=== PATIENT | male | born 1985 | race Caucasian/White ===

== ENCOUNTER 2019-10-15 13:25 | Emergency (ER) | payer MEDICAID, OTHER ==
[~2019-10-15] VITALS: Ht 188 cm; Wt 80.0 kg
[~2019-10-15 13:25] MED LIST: OLAN10TA3 PO
--- NOTE | 2019-10-15 13:39 | NUR ---
pt jason, report taken from ems. pt c/o headache above right eye onset at 0900 while vomiting at [facility]. 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 pt states he has been sober x 1 week, and was dc'd from [facility] this am. all monitors placed, ekg taken on arrival by edt. pt is neurologically intact. pt a&ox4, resps even and unlabored. call light in reach. pt awaiting provider and orders at this time.
--- NOTE | 2019-10-15 13:50 | NUR ---
While performing clinical screen, patient reports intermittent SI, which is chronic. pt notes he has felt suicidal today but has no plan. MD Gleason notified. awaiting orders at this time.
[2019-10-15] MEDS ORDERED: ONDANSETRON 2MG/ML, 2ML IVPush ONE (14:00)
[2019-10-15] MEDS ORDERED: LORazepam 2 MG/ML, 1ML IVPush ONE (14:00)
[2019-10-15] MEDS ORDERED: SODIUM CHLORIDE 0.9% 1,000ML IVBOLUS ONE (14:00)
[2019-10-15] MEDS ORDERED: LORazepam 2 MG/ML, 1ML ONE (14:34)
[2019-10-15] MEDS ORDERED: ONDANSETRON 2MG/ML, 2ML ONE (14:34)
[2019-10-15 14:39] LABS: BASOPHILS # (AUTO) 0.04 x10^3/uL (0-0.1); BASOPHILS % (AUTO) 0 % (0-1); EOSINOPHILS # (AUTO) 0.09 x10^3/uL (0-0.4); EOSINOPHILS % (AUTO) 1 % (1-7); LYMPHOCYTES # (AUTO) 2.23 x10^3/uL (1-3.4); LYMPHOCYTES % (AUTO) 22 % (22-44); MD NO; MEAN CORPUSCULAR HEMOGLOBIN 30.4 pg (27.5-34.5); MEAN CORPUSCULAR HGB CONC 33.2 g/dL (33.2-36.2); MEAN CORPUSCULAR VOLUME 91.5 fL (81-97); MEAN PLATELET VOLUME 9.2 fL (7.4-10.4); MONOCYTES # (AUTO) 0.35 x10^3/uL (0.2-0.8); MONOCYTES % (AUTO) 4 % (2-9); NEUTROPHILS # (AUTO) 7.28 x10^3/uL (1.8-6.8); NEUTROPHILS % (AUTO) 73 % (42-75); PLATELET COUNT 255 x10^3/uL (130-400); RED BLOOD COUNT 4.25 x10^6/uL (4.38-5.82); RED CELL DISTRIBUTION WIDTH 13.8 % (9.4-14.8)
[2019-10-15 14:43] LABS: ALBUMIN 3.8 g/dL (3.4-5.0); ANION GAP 5 mmol/L (5-15); CALCIUM 8.5 mg/dL (8.5-10.1); CHLORIDE 107 mmol/L (98-107)
[2019-10-15 14:47] LABS: ALANINE AMINOTRANSFERASE 113 U/L (12-78); ALKALINE PHOSPHATASE 82 U/L (45-117); BILIRUBIN,TOTAL 0.4 mg/dL (0.2-1.0); CREATININE 0.97 mg/dL (0.7-1.3); TOTAL PROTEIN 6.9 g/dL (6.4-8.2)
[2019-10-15 14:48] LABS: SALICYLATE LEVEL < 1.7 mg/dL (2.8-20.0)
--- NOTE | 2019-10-15 14:52 | NUR ---
REPORT FROM [facility]
--- NOTE | 2019-10-15 14:56 | NUR ---
MD ELLIOTT NOTIFIED PT HAS ALREADY RECEIVED 4 MG ZOFRAN HURRICANE TRACKER, MD SHEIKH'D RN TO ADMIN ADDITIONAL 4 MG ORDERED PER EMAR. PT A&O, RSPS EVEN AND UNLABORED, ST RATE 110'S ON ELECTRIC ORGAN INSPECTOR AND REPAIRER WITH NO ECTOPY. PT MEDICATED PER EMAR, TOLERATED WELL. PER MD ELLIOTT, PT IS LOW RISK SI, PER PT IS TO HAVE LOW RISK SI INTERVENTIONS AT THIS TIME.
--- NOTE | 2019-10-15 14:57 | NUR ---
report given to MIRACLE Hendricks, pt to CT at this time.
[2019-10-15 15:12] LABS: AMPHETAMINE SCREEN, URINE Negative (Negative); BARBITURATE SCREEN, URINE Negative (Negative); BENZODIAZEPINE SCREEN, URINE Negative (Negative); CANNABINOID SCREEN, URINE Positive (Negative); COCAINE SCREEN, URINE Negative (Negative); METHADONE SCREEN, URINE Negative (Negative); OPIATE SCREEN, URINE Negative (Negative)
[2019-10-15] MEDS ORDERED: KETOROLAC 30 MG/1 ML ONE ×2 (16:29→19:39)
[2019-10-15] MEDS ORDERED: ACETAMINOPHEN 500 MG TABLET ONE (16:29)
[2019-10-15] MEDS ORDERED: KETOROLAC 30 MG/1 ML IVPush ONE (16:30)
[2019-10-15] MEDS ORDERED: ACETAMINOPHEN 500 MG TABLET PO ONE (16:30)
--- NOTE | 2019-10-15 16:34 | NUR ---
MEDICATED FOR SANDOVAL PER ORDERS. USER EXPERIENCE DESIGNER AT BEDSIDE DISCUSSING POC
--- NOTE | 2019-10-15 17:25 | NUR ---
PT GIVEN MEAL TRAY. PT IS PLACED ON LEGAL HOLD BY JONG JOHN. ALL BELONGINGS IN SECURITY LOCKER
--- NOTE | 2019-10-15 18:55 | NUR ---
REPORT RECEIVED FROM MIRACLE CASTRO
--- NOTE | 2019-10-15 18:58 | NUR ---
report to cecilia osullivan
--- NOTE | 2019-10-15 19:26 | NUR ---
pt resting on [facility], room secured, stated " i still have suicidal thought and plan is to do too much drugs", sitter at doorway for continous monitoring
[2019-10-15] MEDS ORDERED: QUETIAPINE 100MG TABLET ONE (19:39)
--- NOTE | 2019-10-15 19:49 | NUR ---
pt medicated per mar
--- NOTE | 2019-10-15 19:57 | NUR ---
provided pt with sandwich, chips and drink, si precautions maintained Addendum: 10/15/19 at 2006 by KAMILA sitter at doorway for continous monitoring
[2019-10-15] MEDS: QUETIAPINE 100MG TABLET PO SCH (20:04)
--- NOTE | 2019-10-15 21:18 | NUR ---
pt resting calmly, denies needs at this time, sitter at doorway for continous monitoring
--- NOTE | 2019-10-15 22:10 | NUR ---
pt resting calmly with eyes closed, nad, respirations even and unlabored, sitter at doorway for continous monitoring
--- NOTE | 2019-10-15 23:08 | NUR ---
REFERRAL WAS FAXED TO [facility], [facility], [facility], AND [facility] [[email or web address]]
--- NOTE | 2019-10-15 23:16 | NUR ---
provided pt with hospital bed, pt resting calmly, denies further needs at this time, si safety precautions maintained, sitter at doorway for continous monitoring
--- NOTE | 2019-10-16 00:02 | NUR ---
PT RESTING CALMLY IN BED, NAD, EQUAL CHEST RISE/FALL OBSERVED, SITTER AT DOORWAY FOR CONTINOUS MONITORING
--- NOTE | 2019-10-16 01:02 | NUR ---
PT RESTING CALMLY WITH EYES CLOSED, REPOSITIONED SELF IN BED, EQUAL CHEST RISE/FALL OBSERVED, SITTER AT DOORWAY FOR CONTINOUS MONITORING
--- NOTE | 2019-10-16 02:01 | NUR ---
Yulisa quarles in [facility] - 10/16/19 at 0202 by TEVIN report given to abran burris
--- NOTE | 2019-10-16 02:02 | NUR ---
report given to abran burris
--- NOTE | 2019-10-16 02:05 | NUR ---
PATIENT RESTING IN BED, EVEN UNLABORED RESPIRATIONS, NO NOTED NEEDS AT THIS TIME. SITTER AT BEDSIDE. WILL CONTINUE TO MONITOR.
--- NOTE | 2019-10-16 04:00 | NUR ---
PATIENT ASLEEP IN BED, TOLERATING INTERVENTIONS WELL. NO NOTED ACUTE DISTRESS. PATIENT SITTER AT BEDSIDE. WHEN PATIENT AWAKENS VITAL SIGNS WILL BE TAKEN
--- NOTE | 2019-10-16 05:23 | NUR ---
PATIENT RESTING IN BED, NO NOTED ACUTE DISTRESS. SITTER AT BEDSIDE WITH PATIENT FOR ONE-ON-ONE OBSERVATION. NO NOTED NEEDS AT THIS TIME, WILL CONTINUE TO MONITOR.
--- NOTE | 2019-10-16 07:00 | NUR ---
I AM ASSUMING CARE OF THIS PT FROM BRIA (MIRACLE) AT THIS TIME. SBAR REPORT WAS EXCHANGED AT THE BEDSIDE.
--- NOTE | 2019-10-16 09:56 | NUR ---
PT RESTING COMFORTABLY ON A HOSPITAL BED. NO ACUTE DISTRESS NOTED SINCE MY ARRIVAL ON SHIFT TODAY. MEAL TRAYS ARE PROVIDED AND APPRECIATED. ADLS COMPLETED W SITTER. I WILL CONTINUE TO MONITOR AND TREAT ORDERED, WELL PRN WHILE AWAITING A ROOM ASSIGNMENT FOR FURTHER TX.
[2019-10-16] MEDS ORDERED: QUETIAPINE 100MG TABLET ONE ×2 (10:02→19:21)
[2019-10-16] MEDS: QUETIAPINE 100MG TABLET PO SCH ×2 (10:03→19:26)
--- NOTE | 2019-10-16 12:16 | NUR ---
meal tray provided. pt is sleeping sonorously on a hospital bed at this time. no acute changes in condition noted at this time. i will continue to monitor and treat as ordered, as well as prn while awaiting a room assignment for admission.
--- NOTE | 2019-10-16 12:57 | NUR ---
denise (abran) is assuming care of this pt at this time. sbar report was exchanged at the bedside.
[2019-10-16] MEDS ORDERED: IBUPROFEN 800 MG TABLET ONE (19:23)
[2019-10-16] MEDS ORDERED: IBUPROFEN 600 MG TABLET PO ONE (19:30)
[2019-10-16] MEDS ORDERED: IBUPROFEN 200 MG TABLET PO ONE (19:30)
--- NOTE | 2019-10-16 20:30 | NUR ---
PT REQUESTED WATER. PT DRANK 2 LARGE GLASSES OF WATER
--- NOTE | 2019-10-16 21:50 | NUR ---
PT AMBULATED WITH SITTER TO BATHROOM.
--- NOTE | 2019-10-17 00:31 | NUR ---
BREAK RN: PT RESITNG CALMLY IN BED WITH EYES CLOSED. SITTER AT DOOR.
--- NOTE | 2019-10-17 02:50 | NUR ---
PT SLEEPING IN BED FOR THE LAST 4 HRS, PT HAS SI PRECAUTIONS IN PLACE WITH A SITTER AT PT BED SIDE.
--- NOTE | 2019-10-17 03:50 | NUR ---
PT SLEEPING IN BED WITH 2 SITTERS AT PT SIDE,SI PRECAUTIONS ARE IN PLACE.
--- NOTE | 2019-10-17 06:06 | NUR ---
PT SLEEPING WITH SITTER AT PT SIDE, PT ROOM IS SI SECURED.
--- NOTE | 2019-10-17 06:55 | NUR ---
REPORT GIVEN TO MIRACLE CESAR.
--- NOTE | 2019-10-17 07:15 | NUR ---
REC BS REPORT PT RESTING SITTER IN THE [place] EYES ON THE PT PT CO BLEEDING POST R EAR FROM HIM SCRATCHING IT NO BLEEDING NOTED AT THIS TIME PT ADVISED TO STOP SCRATCHING THE EAR
--- NOTE | 2019-10-17 08:55 | NUR ---
COFFEE NAD CRACKERS PROVIDED
[2019-10-17] MEDS ORDERED: QUETIAPINE 100MG TABLET ONE ×2 (09:03→18:58)
[2019-10-17] MEDS: QUETIAPINE 100MG TABLET PO SCH ×2 (09:06→19:04)
--- NOTE | 2019-10-17 12:53 | NUR ---
PT REQUESTED TO SPEAK WITH SUPV RE NOT BEING PROVIDED WITH ENOUGH FOOD AND SNACKS HOUSE SUP MET WITH PT REVIEWED AND CONFIRMED WITH PT THAT HE WILL REC THREE MEALS AND A SMALL SNACK BETWEEN MEALS PT WILL NOT REC MULTI TRAYS FOR EACH MEAL
--- NOTE | 2019-10-17 13:58 | NUR ---
TP RN: Per Elvi at [facility], their facility is full & wont have any open beds until at least Saturday and this pt is "very far down the list"
[2019-10-17] MEDS ORDERED: HYDROXYZINE PAMOATE 50MG CAP PO ONE (14:00)
[2019-10-17] MEDS ORDERED: hydrOXyzine 50MG TABLET ONE (14:32)
--- NOTE | 2019-10-17 16:10 | NUR ---
ASSUMED CARE OF PT, PT RESTING ON HOSPITAL BED WATCHING TELEVISION. PT WITH SI PRECAUTIONS IN PLACE, SITTER IN VIEW. NAD NOTED
--- NOTE | 2019-10-17 18:00 | NUR ---
ASSUMED PT CARE AT THIS TIME. PT RESTING ON HOSP BED. ALL SAFETY MEASURES IN PLACE. SITTER AT DOORWAY, PT WITHIN FULL VIEW.
[2019-10-17] MEDS ORDERED: IBUPROFEN 200 MG TABLET ONE (18:27)
[2019-10-17] MEDS ORDERED: IBUPROFEN 800 MG TABLET ONE (18:29)
[2019-10-17] MEDS ORDERED: IBUPROFEN 800 MG TABLET PO ONE (18:30)
--- NOTE | 2019-10-17 18:56 | NUR ---
LATE ENTRY FOR 1830: PT MEDICATED PER ORDER. PT GIVEN LYNETTE CRACKERS AND PEANUT BUTTER, ALSO GIVEN WATER. ALL SAFETY MEASURES OBTAINED.
--- NOTE | 2019-10-17 18:57 | NUR ---
BEDSIDE REPORT TO MIRACLE ZARAGOZA.
--- NOTE | 2019-10-17 19:04 | NUR ---
ROUNDS COMPLETED. VS TAKEN. PM MEDS GIVEN. REQUESTING A SNACK. PER RN TO RN REPORT THE PT WAS GIVEN A SNACK OF CRACKERS AND PEANUT BUTTER AT 1800.
--- NOTE | 2019-10-17 19:07 | NUR ---
CONT CURRENT TREATMENT. " I FEEL LIKE THE SEROQUEL IS REALLY HELPING ".
--- NOTE | 2019-10-17 19:08 | NUR ---
SITTER DIRECTLY AT THE DOOR.
--- NOTE | 2019-10-17 20:28 | NUR ---
RESTING QUIETLY. NO DISTRESS. NO C/O AT THIS TIME. NO NONVERBAL S/S OF PAIN OR DISCOMFORT. THE SITTER IS DIRECTLY AT THE DOOR.
--- NOTE | 2019-10-17 21:51 | NUR ---
SITTER DIRECTLY AT THE DOOR. THE PT RESPIRATIONS ARE EVEN AND NONLABORED W/O DISTRESS.
--- NOTE | 2019-10-18 00:03 | NUR ---
SITTER DIRECTLY AT THE DOOR. THE PT RESPIRATIONS ARE EVEN AND NONLABORED W/O DISTRESS.
--- NOTE | 2019-10-18 01:57 | NUR ---
SITTER DIRECTLY AT THE DOOR. THE PT RESPIRATIONS ARE EVEN AND NONLABORED W/O DISTRESS.
--- NOTE | 2019-10-18 05:13 | NUR ---
THE PT IS RESTING. RESPIRATIONS ARE EVEN AND NONLABORED. NO DISTRESS. NO NONVERBAL S/S OF PAIN OR DISCOMFORT. THE SITTER IS DIRECTLY AT THE DOOR. THE PT BREAKFAST TRAY HAS BEEN ORDERED.
--- NOTE | 2019-10-18 07:28 | NUR ---
PT PROVIDED WITH COFFEE PER REQUEST, DENIES FURTHER NEEDS AT THIS TIME. NO ACUTE S/S OF DISTRESS. SITTER MONITORING FROM [facility] SAFETY
[2019-10-18] MEDS ORDERED: QUETIAPINE 100MG TABLET ONE ×2 (08:12→20:33)
[2019-10-18] MEDS: QUETIAPINE 100MG TABLET PO SCH ×2 (08:15→20:37)
--- NOTE | 2019-10-18 08:20 | NUR ---
pt provided with coffe per request
--- NOTE | 2019-10-18 09:07 | NUR ---
Report received from MIRACLE Braden. Care assumed. Patient is resting in bed with sitter in the doorway, room is safe and secure, no requests from patient at this time. Patient resting in hospital bed watching television, does not appear to be in acute distress.
--- NOTE | 2019-10-18 10:00 | NUR ---
Patient requests food, patient given between meal snack including milk and cereal, peanut butter and duncan crackers and applesauce.
--- NOTE | 2019-10-18 10:42 | NUR ---
Patient requested medication for anxiety, medicated as ordered and documented 5 rights observed.
--- NOTE | 2019-10-18 10:43 | NUR ---
Lunch tray ordered.
--- NOTE | 2019-10-18 11:52 | NUR ---
Provider at bedside speaking with patient.
--- NOTE | 2019-10-18 12:12 | NUR ---
Lunch provided, patient pleasant and cooperative, reports improvement in anxiety.
[2019-10-18] MEDS ORDERED: SERTRALINE 50MG TABLET ONE (12:15)
[2019-10-18] MEDS: SERTRALINE 50MG TABLET PO SCH (12:17)
--- NOTE | 2019-10-18 14:59 | NUR ---
Patient given afternoon snack as requested. Sitter remains in full view of patient.
--- NOTE | 2019-10-18 17:39 | NUR ---
Dinner tray provided.
--- NOTE | 2019-10-18 19:04 | NUR ---
Bedside report to MIRACLE Curran
--- NOTE | 2019-10-18 19:42 | NUR ---
PT RESTING WATHING TV, MEDICATED PER ANXIETY PER HIS REQUEST, ROOM SECURED, SITTER AT DOORWAY FOR CONTINOUS MONITORING
--- NOTE | 2019-10-18 20:35 | NUR ---
PROVIDED PT WITH SANDWICH, CHIP AND DRINK, SI PRECAUTIONS MAINTAINED.
--- NOTE | 2019-10-18 20:38 | NUR ---
pt medicated per jan, sitter at doorway for continous monitoring
--- NOTE | 2019-10-18 21:23 | NUR ---
PT RESTING IN BED WATCHING TV, DENIES NEEDS AT THIS TIME, ROOM REMAINS SECURED, SITTER AT DOORWAY FOR CONTINOUS MONITORING
--- NOTE | 2019-10-18 23:07 | NUR ---
late entry 2215-PT RESTING IN BED WATCHING TV, DENIES NEEDS AT THIS TIME, SITTER AT DOORWAY FOR CONTINOUS MONITORING
--- NOTE | 2019-10-18 23:07 | NUR ---
PT RESTING IN BED, DENIES NEEDS, SITTER AT DOORWAY FOR CONTINOUS MONITORING
--- NOTE | 2019-10-19 00:05 | NUR ---
PT RESTING WITH EYES CLOSED, EQUAL CHEST RISE/FALL OBSERVED, SITTER AT DOORWAY FOR CONTINOUS MONITORING
--- NOTE | 2019-10-19 02:56 | NUR ---
PT RESTING IN BED WATCHING TV, PT HAS SITTER AT PT DOOR, SI SECURE ROOM AND SI PRECAUTIONS ARE IN PLACE. PT DENIED ANY NEEDS AT THIS TIME.
--- NOTE | 2019-10-19 03:57 | NUR ---
PT SLEEPING, PT HAS SITTER AT PT DOOR, SI SECURE ROOM AND SI PRECAUTIONS ARE IN PLACE. PT DENIED ANY NEEDS AT THIS TIME.
--- NOTE | 2019-10-19 06:02 | NUR ---
PT SLEEPING, PT HAS SITTER AT PT DOOR, SI SECURE ROOM AND SI PRECAUTIONS ARE IN PLACE. PT DENIED ANY NEEDS AT THIS TIME.
--- NOTE | 2019-10-19 06:03 | NUR ---
PT SLEEPING, PT HAS SITTER AT PT DOOR, SI SECURE ROOM AND SI PRECAUTIONS ARE IN PLACE. PT DENIED ANY NEEDS AT THIS TIME.
--- NOTE | 2019-10-19 07:00 | NUR ---
REPORT RECEIVED FROM REBECA RAUSCH.
--- NOTE | 2019-10-19 07:01 | NUR ---
MEAL TRAY ORDERED AT THIS TIME.
--- NOTE | 2019-10-19 07:50 | NUR ---
MEAL TRAY AND HOT COFFEE PROVIDED AT THIS TIME.
[2019-10-19] MEDS ORDERED: QUETIAPINE 100MG TABLET ONE ×2 (08:31→20:45)
[2019-10-19] MEDS ORDERED: SERTRALINE 50MG TABLET ONE (08:31)
[2019-10-19] MEDS: SERTRALINE 50MG TABLET PO SCH (08:33)
[2019-10-19] MEDS: QUETIAPINE 100MG TABLET PO SCH ×2 (08:33→20:50)
--- NOTE | 2019-10-19 08:35 | NUR ---
PT MEDICATED PER EMAR. PT TOLERATED WELL.
--- NOTE | 2019-10-19 09:31 | NUR ---
CUP OF COFFEE AND SNACKS PROVIDED AT THIS TIME.
--- NOTE | 2019-10-19 10:28 | NUR ---
PT WATCHING TV IN BED. PT'S AOX4. RESPS EVEN AND UNLABORED. ROOM REMAINS SECURE. SITTER MONITORING FROM [facility] FOR SAFETY.
--- NOTE | 2019-10-19 11:15 | NUR ---
MEAL TRAY ORDERED AT THIS TIME.
--- NOTE | 2019-10-19 11:52 | NUR ---
LUNCH TRAY PROVIDED AT THIS TIME.
--- NOTE | 2019-10-19 12:58 | NUR ---
PT WATCHING TV. RESPS EVEN AND UNLABORED. ROOM REMAINS SECURE. SITTER MONITORING FROM [facility]ALLWAY FOR SAFETY.
--- NOTE | 2019-10-19 14:14 | NUR ---
PT WATCHING TV. RESPS EVEN AND UNLABORED. ROOM REMAINS SECURE. SITTER MONITORING FROM [facility]ALLWAY FOR SAFETY.
--- NOTE | 2019-10-19 14:33 | NUR ---
A CUP OF COFFEE AND SNACKS PROVIDED AT THIS TIME.
--- NOTE | 2019-10-19 16:02 | NUR ---
PT AMB TO BR WITH STEADY GAIT.
--- NOTE | 2019-10-19 16:38 | NUR ---
PT C/O ANXIETY AT THIS TIME. PT MEDICATED PER EMAR FOR ANXIETY. PT TOLERATED WELL.
--- NOTE | 2019-10-19 17:18 | NUR ---
MEAL TRAY ORDERED AT THIS TIME.
--- NOTE | 2019-10-19 18:09 | NUR ---
DINNER TRAY PROVIDED AT THIS TIME.
--- NOTE | 2019-10-19 18:49 | NUR ---
REPORT GIVEN TO TWILA RAUSCH.
--- NOTE | 2019-10-19 18:59 | NUR ---
Recevied report from RN. Assumed care of pt. Pt sitting up in bed watching TV, denies any needs at this time. Reviewed POC for NOC, denied questions/concerns.
--- NOTE | 2019-10-19 19:00 | NUR ---
Sitter in view of pt.
--- NOTE | 2019-10-19 20:50 | NUR ---
PT MEDICATED ORDERED. PT IN DIRECT VIEW OF SITTER.
--- NOTE | 2019-10-19 21:22 | NUR ---
PT RESTING QUIETLY AT THIS TIME. PT IN DIRECT VIEW OF SITTER.
--- NOTE | 2019-10-19 22:42 | NUR ---
PT RESTING QUIETLY AT THIS TIME. PT IN DIRECT VIEW OF SITTER.
--- NOTE | 2019-10-19 23:53 | NUR ---
PT RESTING QUIETLY AT THIS TIME. PT IN DIRECT VIEW OF SITTER.
--- NOTE | 2019-10-20 02:51 | NUR ---
0100: PT RESTING QUIETLY AT THIS TIME. SITTER IN DIRECT VIEW OF PT. 0248: PT RESTING QUIETLY AT THIS TIME. SITTER IN DIRECT VIEW OF PT.
--- NOTE | 2019-10-20 04:11 | NUR ---
PT RESTING QUIETLY AT THIS TIME. SITTER IN DIRECT VIEW OF PT.
--- NOTE | 2019-10-20 05:11 | NUR ---
PT RESTING QUIETLY AT THIS TIME. SITTER IN DIRECT VIEW OF PT
--- NOTE | 2019-10-20 06:07 | NUR ---
PT RESTING QUIETLY AT THIS TIME. PT IN DIRECT VIEW OF SITTER.
--- NOTE | 2019-10-20 06:57 | NUR ---
REPORT TO MIRACLE LEPE.
--- NOTE | 2019-10-20 07:04 | NUR ---
REPORT RECEIVED FROM DANIEL RN, PT REESTING ON HOSPITAL BED. AWAKE ALERT AND CALM, REQUESTING COFFEE AT THIS TIME, WILL GIVE TO PT WITH AM MEDS, SITTER IN PLACE, NO OTHER NEEDS AT THIS TIME
[2019-10-20] MEDS ORDERED: QUETIAPINE 100MG TABLET ONE (07:25)
[2019-10-20] MEDS ORDERED: SERTRALINE 50MG TABLET ONE (07:25)
[2019-10-20] MEDS: SERTRALINE 50MG TABLET PO SCH (07:31)
[2019-10-20] MEDS: QUETIAPINE 100MG TABLET PO SCH (07:31)
[2019-10-20 07:37] VITALS: BP 113/70
--- NOTE | 2019-10-20 09:07 | NUR ---
PT MEDICATED PER JAN FOR ANXIETY PER PT REQUEST, ATE ALL OF BREAKFAST TRAY. PT NOW, SI PRECAUTIONS IN PLACE, NAD NOTED
--- NOTE | 2019-10-20 10:26 | NUR ---
PT RESTING ON BED IN SECURE RM. GIVEN COFFEE PER PT REQUEST. NAD NOTED
--- NOTE | 2019-10-20 11:11 | NUR ---
ASHLEY JONG IN TO SPEAK WITH PT. PT TO GO TO COURT TODAY. KELYL DELUCA ORDERED FOR PT. NO OTHER NEEDS AT THIS TIME
--- NOTE | 2019-10-20 12:26 | NUR ---
PTS LEGAL HOLD DISCONTINUED, PT WITH DC ORDERS, PT GIVEN INSTRUCTIONS, UNDERSTANDING STATED. PT GIVEN ALL BELONGINGS FROM LOCKER. CAB VOUCHER PROVIDED. PT ESCORTED TO DC DESK
== END 2019-10-20 12:31 | disposition home or self-care (01) ==
LOC: EDBD 13:25 → ED 17:43
DX: R45.851 Suicidal ideations (principal); R11.2 Nausea with vomiting, unspecified; R51 Headache; R19.7 Diarrhea, unspecified
CPT/HCPCS: 36415; 70450; 71045; 80053; 80307; 85025; 93005; 96374; 96375; 99284; J1885; J2060; J2405; J7030; Q0177

== ENCOUNTER 2019-10-23 16:44 | Emergency (ER) | payer MEDICAID, OTHER ==
[~2019-10-23] VITALS: Ht 188 cm; Wt 83.0 kg
[2019-10-23] MEDS ORDERED: LEVE250T28 PO (17:17)
[2019-10-23] MEDS ORDERED: HALO5TAB5 PO (17:17)
[2019-10-23] MEDS ORDERED: MIRT15TA3 PO (17:17)
--- NOTE | 2019-10-23 17:25 | NUR ---
PT TIP EUCEDA FROM STREET. HOMELESS. STS HE GETS DAILY SEIZURES AND HAS AURA BEFORE SEIZURES. STS TODAY HE HAD A SEIZURE. ALSO STS TODAY HE TOOK HIS HALDOL IN AM AND AFTER HIS SEIZURE HE NOTICED THAT HIS JAW FELT CLENCHED. DENIES HX DYSTONIC REACTIONS. ADMITS TO SMOKING METH 1 HOUR PRIOR TO ARRIVAL. DENIES ETOH/OTHER DRUG USE. TOLD EMS AND THIS RN THAT HE WAS SUICIDAL, STS HIS PLAN IS TO JUMP OFF A BRIDGE. STS ATTEMPTED TO HANG HIMSELF 1 MONTH AGO WHILE IN [place]. FACILITY MANAGER HISTOLOGY AT BEDSIDE TO SIT W/ PT. VSS, SEIZURE PRECAUTIONS IN PLACE, CALL HERNANDEZ IN REACH AWAITING MD PT ASKING FOR FOOD, STS HIS JAW FEELS LESS CLENCHED.
[2019-10-23] MEDS ORDERED: SODIUM CHLORIDE FLUSH 10ML SYR IVF ONE (18:30)
[2019-10-23] MEDS ORDERED: LEVETIRACETAM 1,000 MG in SODIUM CHLORIDE 0.9% 100 ML IV ONE (18:30)
[2019-10-23] MEDS ORDERED: QUETIAPINE 100MG TABLET ONE (18:46)
[2019-10-23 18:50] LABS: BASOPHILS # (AUTO) 0.05 x10^3/uL (0-0.1); BASOPHILS % (AUTO) 1 % (0-1); EOSINOPHILS # (AUTO) 0.05 x10^3/uL (0-0.4); EOSINOPHILS % (AUTO) 0 % (1-7); LYMPHOCYTES # (AUTO) 2.34 x10^3/uL (1-3.4); LYMPHOCYTES % (AUTO) 22 % (22-44); MD NO; MEAN CORPUSCULAR VOLUME 90.8 fL (81-97); MEAN PLATELET VOLUME 9.4 fL (7.4-10.4); MONOCYTES % (AUTO) 7 % (2-9); NEUTROPHILS # (AUTO) 7.44 x10^3/uL (1.8-6.8); NEUTROPHILS % (AUTO) 70 % (42-75); PLATELET COUNT 212 x10^3/uL (130-400); RED BLOOD COUNT 4.73 x10^6/uL (4.38-5.82); RED CELL DISTRIBUTION WIDTH 13.8 % (9.4-14.8)
--- NOTE | 2019-10-23 18:51 | NUR ---
URINE SENT. PT GIVEN FOOD. EKG COMPLETE. BELONGINGS IN BAGS. SITTER AT BEDSIDE. Addendum: 10/23/19 at 1856 by ASAAMANDA URINE SENT. PT GIVEN FOOD. EKG COMPLETE. BELONGINGS IN BAGS. PLACED IN LOCKED LOCKER. SITTER AT BEDSIDE.
[2019-10-23 18:59] LABS: ALBUMIN 3.9 g/dL (3.4-5.0); ANION GAP 7 mmol/L (5-15); CALCIUM 9.2 mg/dL (8.5-10.1); CHLORIDE 105 mmol/L (98-107)
[2019-10-23 18:59] LABS: MICROSCOPIC NOT IND
[2019-10-23 19:03] LABS: ALANINE AMINOTRANSFERASE 197 U/L (12-78); ALKALINE PHOSPHATASE 93 U/L (45-117); BILIRUBIN,TOTAL 0.5 mg/dL (0.2-1.0); CREATININE 0.82 mg/dL (0.7-1.3); TOTAL PROTEIN 7.6 g/dL (6.4-8.2)
[2019-10-23 19:04] LABS: SALICYLATE LEVEL < 1.7 mg/dL (2.8-20.0)
[2019-10-23 19:07] LABS: CULTURE INDICATED? NO
--- NOTE | 2019-10-23 19:12 | NUR ---
PT MOVED TO ROOM 40.
[2019-10-23 19:16] LABS: AMPHETAMINE SCREEN, URINE Negative (Negative); BARBITURATE SCREEN, URINE Negative (Negative); BENZODIAZEPINE SCREEN, URINE Negative (Negative); CANNABINOID SCREEN, URINE Positive (Negative); COCAINE SCREEN, URINE Negative (Negative); METHADONE SCREEN, URINE Negative (Negative); OPIATE SCREEN, URINE Negative (Negative)
--- NOTE | 2019-10-23 19:20 | NUR ---
Pt report from Taryn osullivan. This rn to assume care of pt. Moved to psych safe room. Roller doors in place. Sitter in hallway.
--- NOTE | 2019-10-23 20:00 | NUR ---
Pt resting comfortably. Nadn at this time. Watching tv.
[2019-10-23 20:50] VITALS: BP 138/76
--- NOTE | 2019-10-23 20:57 | NUR ---
DECLINED BY [facility] DUE TO INSURANCE.
[2019-10-23] MEDS ORDERED: QUETIAPINE 200 MG TABLET PO SCH (21:00)
--- NOTE | 2019-10-23 21:08 | NUR ---
Pt resting comfortably. Nadn at this time. Watching tv.
--- NOTE | 2019-10-23 21:12 | NUR ---
SPOKE WITH TWILA AT [facility] AND MOBILE TRUST VAULT CLERK PAGED. UNKNOWN ETA AT THIS TIME.
--- NOTE | 2019-10-23 21:17 | NUR ---
SPOKE WITH DR KAY FROM [facility] WHOM STATES NO NEED FOR MOBILE PRINTER MACHINE AND HE WILL APPROVE THE REFERRAL BE SENT TO [place] .
--- NOTE | 2019-10-23 22:13 | NUR ---
REFERRAL PACKET FAXED TO [facility] PER REQUEST OF DR KAY. [facility] WAS CALLED AND CONFIRMED THEY HAVE RECEIVED IT. THEY ARE CALLING THEIR DOCTOR NOW ABOUT ACCEPTANCE.
--- NOTE | 2019-10-23 22:29 | NUR ---
BRADEN WITH [facility] CALLED BACK AND STATES DR SHOOK WILL ACCEPT THE PT. THEY ARE READY FOR THE PT TO BE SENT OVER SOON REPORT IS CALLED. PRIMARY RN INFORMED.
--- NOTE | 2019-10-23 22:45 | NUR ---
[facility]. SPOKE WITH JENNIFER WITH [facility] WHOM STATES PTS INSURANCE DOES NOT PARTICIPATE WITH [facility].
== END 2019-10-23 23:22 ==
LOC: ED 20:36
DX: F33.9 Major depressive disorder, recurrent, unspecified (principal); R45.851 Suicidal ideations; G40.319 Generalized idiopathic epilepsy and epileptic syndromes, intractable, without status epilepticus; F12.10 Cannabis abuse, uncomplicated; F15.10 Other stimulant abuse, uncomplicated; Z72.9 Problem related to lifestyle, unspecified
CPT/HCPCS: 36415; 80053; 80177; 80307; 81003; 85025; 93005; 96365; 99285; J1953

== ENCOUNTER 2019-11-07 13:05 | Emergency (ER) | payer MEDICAID ==
[~2019-11-07] VITALS: Ht 188 cm; Wt 94.5 kg
[~2019-11-07 13:05] MED LIST changes: +HALO5TAB5 PO; +LEVE250T28 PO; +MIRT15TA3 PO
[2019-11-07] MEDS ORDERED: LORazepam 1MG TABLET PO ONE (13:30)
[2019-11-07] MEDS ORDERED: LORazepam 1MG TABLET ONE (13:43)
--- NOTE | 2019-11-07 13:52 | NUR ---
PT PRESENTS W SI W PLAN. PT STATES HE WAS AT WORK AT [employer] AND WAS OVERCOME W EMOTION AND CONFUSION. HE STATES HE HAD A MENTAL BREAK DOWN AND TOLD HIS EMPLOYERS HE WAS GOING TO JUMP OFF THE RAILING AND WANTED TO KILL HIMSELF. PT IS WELL DRESSED, STATES HE IS EMBARASSED FOR CRYING IN FRONT OF PEOPLE AND THOUGHT HE COULD GET THROUGH THIS, "STATES I DONT KNOW IF I WANT TO LIVE OR ". WAS RECENTLY DC FROM [facility] FROM AN ADMISSION. CLEAN FROM METH FOR 2 WEEKS. PT STATES HE IS COMPLIANT W MEDICATIONS. DENIES DELUSIONS OR HALLUCINATIONS. PT BELONGING IN BAG SECURED. PT IN SECURE ROOM DRESSED IN GOWN. VS STABLE. SITTER PRESENT. HX OF BIPOLAR, SHIZOPHRENIA, SPLIT PERSONALITY DISORDER PER PT
[2019-11-07 13:57] VITALS: BP 128/82
--- NOTE | 2019-11-07 14:04 | NUR ---
MEDICATED PER ORDERS
--- NOTE | 2019-11-07 14:15 | NUR ---
TASK RN: PT RESTING IN GURNEY WATCHING TV; CURRENTY CALM, NAD. PT INTERACTING APPROPRIATELY & POLITELY WITH STAFF AND AMBULATED STEADILY TO RESTROOM TO PROVIDE DOA. DOA COLLECTED AND WALKED TO LAB.
[2019-11-07 14:36] LABS: AMPHETAMINE SCREEN, URINE Negative (Negative); BARBITURATE SCREEN, URINE Negative (Negative); BENZODIAZEPINE SCREEN, URINE Negative (Negative); CANNABINOID SCREEN, URINE Negative (Negative); COCAINE SCREEN, URINE Negative (Negative); METHADONE SCREEN, URINE Negative (Negative); OPIATE SCREEN, URINE Negative (Negative)
[2019-11-07 14:45] LABS: BASOPHILS # (AUTO) 0.03 x10^3/uL (0-0.1); BASOPHILS % (AUTO) 0 % (0-1); EOSINOPHILS % (AUTO) 3 % (1-7); LYMPHOCYTES # (AUTO) 1.82 x10^3/uL (1-3.4); LYMPHOCYTES % (AUTO) 30 % (22-44); MD NO; MEAN CORPUSCULAR HEMOGLOBIN 30.1 pg (27.5-34.5); MEAN CORPUSCULAR HGB CONC 32.9 g/dL (33.2-36.2); MEAN CORPUSCULAR VOLUME 91.5 fL (81-97); MEAN PLATELET VOLUME 10.1 fL (7.4-10.4); MONOCYTES # (AUTO) 0.55 x10^3/uL (0.2-0.8); MONOCYTES % (AUTO) 9 % (2-9); NEUTROPHILS # (AUTO) 3.58 x10^3/uL (1.8-6.8); NEUTROPHILS % (AUTO) 58 % (42-75); PLATELET COUNT 189 x10^3/uL (130-400); RED BLOOD COUNT 4.67 x10^6/uL (4.38-5.82)
--- NOTE | 2019-11-07 14:49 | NUR ---
CARDIOLOGY ASSOCIATE AT BEDSIDE.
[2019-11-07 14:54] LABS: ALANINE AMINOTRANSFERASE 205 U/L (12-78); ALBUMIN 3.7 g/dL (3.4-5.0); ANION GAP 8 mmol/L (5-15); CALCIUM 9.2 mg/dL (8.5-10.1); CHLORIDE 105 mmol/L (98-107); CREATININE 0.98 mg/dL (0.7-1.3)
[2019-11-07 15:00] LABS: ALKALINE PHOSPHATASE 92 U/L (45-117); BILIRUBIN,TOTAL 0.4 mg/dL (0.2-1.0); SALICYLATE LEVEL < 1.7 mg/dL (2.8-20.0); TOTAL PROTEIN 7.1 g/dL (6.4-8.2)
[2019-11-07] MEDS ORDERED: RISP3TAB3 PO (15:05)
[2019-11-07] MEDS ORDERED: AMAN100T PO (15:05)
[2019-11-07] MEDS ORDERED: BENZ1TAB61 PO (15:05)
[2019-11-07] MEDS ORDERED: LEVE500T22 PO (15:05)
[2019-11-07] MEDS ORDERED: GABA600T7 PO (15:05)
[2019-11-07] MEDS ORDERED: DIVA250T4 PO (15:05)
[2019-11-07] MEDS ORDERED: DIVA250T14 PO (15:05)
[2019-11-07] MEDS ORDERED: QUETIAPINE 25MG TABLET ONE (15:29)
[2019-11-07] MEDS ORDERED: QUETIAPINE 25MG TABLET PO ONE (15:30)
--- NOTE | 2019-11-07 15:48 | NUR ---
Patient/Caregiver given discharge instructions and they have confirmed that they understand the instructions. Patient ambulatory with steady gait. All belongings back to pt.
[2019-11-08] MEDS ORDERED: QUET200T4 PO (19:02)
[2019-11-08] MEDS ORDERED: QUET100T4 PO (19:02)
== END 2019-11-07 15:50 | disposition home or self-care (01) ==
LOC: ED 14:03
DX: F25.0 Schizoaffective disorder, bipolar type (principal)
CPT/HCPCS: 36415; 70450; 80053; 80164; 80307; 85025; 99284

== ENCOUNTER 2019-11-27 15:38 | Emergency (ER) | payer MEDICAID ==
[~2019-11-27] VITALS: Ht 188 cm; Wt 92.0 kg
[~2019-11-27 15:38] MED LIST changes: +AMAN100T PO; +BENZ1TAB61 PO; +DIVA250T14 PO; +DIVA250T4 PO; +GABA600T7 PO; +LEVE500T22 PO; +QUET100T4 PO; +QUET200T4 PO; +RISP3TAB3 PO
[2019-11-27 15:46] VITALS: BP 139/90
--- NOTE | 2019-11-27 15:56 | NUR ---
THIS IS A 33 YO MALE BIB [facility] FROM [facility] FOR MAKING SI COMMENTS SUCH "I DON'T WANT TO LIVE ANYMORE". PATIENT STATES HE HAS BEEN OFF HIS PSYCH MEDS FOR A FEW DAYS NOW, STTES "I DON'T HAVE MY INSURANCE CARD SO I CAN'T REFILL MY PRESCRIPTION". PATIENT HAS HX OF SCHIZOPHRENIA, SPLIT PERSONALITY DISORDER, BIPOLAR, PARANOIA AND EPILEPSY. PATIENT STATES "I'VE BEEN STUCK HERE FOR A FEW WEEKS CAUSE I MISSED THE TRAIN BACK TO [place]". PATIENT CLAIMS TO HAVE HAD PREVIOUS SUICIDE ATTEMPTS, ONE BEING IN THE LAST THREE MONTHS. PATIENT STATES HE DOES NOT PLAN TO HURT HIMSELF HERE WHILE AT [facility], JUST WANTS PSYCH CONSULT AND MEDS. PATIENT BELONGINGS PLACED IN TWO BAGS AND PUT IN LOCKED STORAGE. BANK PRESIDENT NOTIFIED, CALLED FOR SITTER.
--- NOTE | 2019-11-27 16:00 | NUR ---
THROUGHPUT RN: PSYCH DORA CALLED. NO ANSWER.
--- NOTE | 2019-11-27 16:10 | NUR ---
THROUGHPUT RN: SOC CALLED
--- NOTE | 2019-11-27 16:37 | NUR ---
PATIENT SWITCHED TO LOCKED UP ROOM, ED-39. SITTER AT DOOR.
--- NOTE | 2019-11-27 17:26 | NUR ---
WAITING FOR CHANGE MANAGEMENT FACILITATOR TO CALL FOR TELEPSYCH. PATIENT RESTING OPN GURNEY, RESPIRATIONS EVEN AND UNLABORED. CALL LIGHT IN REACH, SITTER AT DOOR
[2019-11-27 18:16] LABS: BASOPHILS # (AUTO) 0.02 x10^3/uL (0-0.1); BASOPHILS % (AUTO) 0 % (0-1); EOSINOPHILS # (AUTO) 0.06 x10^3/uL (0-0.4); EOSINOPHILS % (AUTO) 1 % (1-7); LYMPHOCYTES # (AUTO) 1.65 x10^3/uL (1-3.4); LYMPHOCYTES % (AUTO) 19 % (22-44); MD NO; MEAN CORPUSCULAR HEMOGLOBIN 29.8 pg (27.5-34.5); MEAN CORPUSCULAR HGB CONC 33.4 g/dL (33.2-36.2); MEAN CORPUSCULAR VOLUME 89.1 fL (81-97); MEAN PLATELET VOLUME 9.6 fL (7.4-10.4); MONOCYTES # (AUTO) 0.47 x10^3/uL (0.2-0.8); MONOCYTES % (AUTO) 5 % (2-9); NEUTROPHILS % (AUTO) 75 % (42-75); PLATELET COUNT 189 x10^3/uL (130-400); RED BLOOD COUNT 5.02 x10^6/uL (4.38-5.82); RED CELL DISTRIBUTION WIDTH 13.1 % (9.4-14.8)
[2019-11-27 18:23] LABS: ALBUMIN 3.7 g/dL (3.4-5.0); ANION GAP 6 mmol/L (5-15); CALCIUM 9.1 mg/dL (8.5-10.1); CHLORIDE 109 mmol/L (98-107)
[2019-11-27 18:28] LABS: ALANINE AMINOTRANSFERASE 166 U/L (12-78); ALKALINE PHOSPHATASE 96 U/L (45-117); BILIRUBIN,TOTAL 0.6 mg/dL (0.2-1.0); CREATININE 0.93 mg/dL (0.7-1.3); TOTAL PROTEIN 7.5 g/dL (6.4-8.2)
--- NOTE | 2019-11-27 18:28 | NUR ---
PHONE CALL WITH PSYCHIATRIST COMPLETED. WILL COME ON TELEPSYCH SOON. TELEPSYCH SET UP IN PATIENT ROOM
[2019-11-27 18:30] LABS: SALICYLATE LEVEL < 1.7 mg/dL (2.8-20.0)
--- NOTE | 2019-11-27 19:10 | NUR ---
RECEIVED REPORT FROM MIRACLE COLLINS. SITTER AT THE DOOR.
--- NOTE | 2019-11-27 23:05 | NUR ---
Pt requesting medication to sleep, Dr. Bernabe to order ativan po.
--- NOTE | 2019-11-27 23:08 | NUR ---
YONY RN: [facility]
[2019-11-27] MEDS ORDERED: LORazepam 1MG TABLET ONE (23:09)
[2019-11-27] MEDS ORDERED: LORazepam 1MG TABLET PO ONE (23:30)
--- NOTE | 2019-11-27 23:32 | NUR ---
YONY RN: [facility] WILL BE ACCEPTING PT. DR. SHOOK ACCEPTING PHYSICIAN
--- NOTE | 2019-11-28 00:06 | NUR ---
TP RN: REPORT TO MIRACLE MATTSON AT [facility]
--- NOTE | 2019-11-28 00:29 | NUR ---
TP RN: 2 BAGS OF BELONGINGS TAKEN OUT OF LOCKER AND GIVEN TO [facility] TRANSPORT STAFF. STAFF ALSO PROVIDED WITH ORIGINAL HOLD AND TRANSFER PAPERWORK
== END 2019-11-28 00:31 ==
LOC: EDBD 15:38 → MERGE 15:38 → ED 19:44
DX: R45.851 Suicidal ideations (principal); F23 Brief psychotic disorder; F60.0 Paranoid personality disorder
CPT/HCPCS: 36415; 80053; 80307; 85025; 93005; 99285

== ENCOUNTER 2019-12-04 17:50 | Emergency (ER) | payer MEDICAID ==
[~2019-12-04] VITALS: Ht 188 cm; Wt 85.0 kg
[2019-12-04] MEDS ORDERED: HALO5TAB5 PO (18:05)
[2019-12-04] MEDS ORDERED: RISP2TAB35 PO (18:06)
--- NOTE | 2019-12-04 18:10 | NUR ---
THIS IS A 33 YO MALE BIB [place]. PATIENT WAS RECENTLY IN [facility] AND WAS ON HIS WAY TO [facility]. PATIENT TOOK METHAMPHETAMINE AND MARIJUANA BEFORE GETTING TO ASSISTED, TRIED TO GO TO [facility]FFERENT [facility] AND THEY DID NOT TAKE HIS INSURANCE, SO PATIENT CALLED TO BE BROUGHT TO [facility] TO DETOX. PATIENT HAS EXTENSIVE PSYCH HX, CURRENTLY DENIES SI/HI, BUT HAS HX OF SA. PATIENT PLACED ON CARDIAC MONTIOR, SINUS TACHY AT 128. CONTINUOUS SPO2 AT 97%, CYCLE BP Q1HR. NO SITTER NEEDED AT THIS TIME.
[2019-12-04] MEDS ORDERED: LORazepam 1MG TABLET PO ONE (19:00)
--- NOTE | 2019-12-04 19:00 | NUR ---
PATIENT MEDICATED BY LAURI LAGUNA RN. TOLERATED WELL. PATIENT ANTSY AND TRYING TO GET OUT OF BED. PATIENT REORIENTED, BACK IN BED AT THIS TIME.
--- NOTE | 2019-12-04 19:26 | NUR ---
PATIENT PROVIDED WITH FOOD FROM [employer]. DENIES FURTHER NEEDS AT THIS TIME
--- NOTE | 2019-12-04 20:09 | NUR ---
MD RIMA TO ROOM, REVIEWED VITAL SIGNS, PATIENT IS TACHY AT 110 BUT RECENTLY USED METHAMPHETAMINE. DR. ABARCA STATES PATIENT IS SAFE TO BE D/C
--- NOTE | 2019-12-04 20:12 | NUR ---
Patient/Caregiver given discharge instructions and they have confirmed that they understand the instructions. Patient ambulatory with steady gait. Patient provided with taxi voucher slip to nursing home.
[2019-12-04 20:26] VITALS: BP 126/72
== END 2019-12-04 20:28 | disposition home or self-care (01) ==
LOC: ED 18:11
DX: F15.10 Other stimulant abuse, uncomplicated (principal); R00.0 Tachycardia, unspecified
CPT/HCPCS: 93005; 99283

== ENCOUNTER 2019-12-08 16:34 | Emergency (ER) | payer MEDICAID ==
[~2019-12-08] VITALS: Ht 182.9 cm; Wt 90.9 kg
[~2019-12-08 16:34] MED LIST changes: +RISP2TAB35 PO
[2019-12-08] MEDS ORDERED: QUET100T4 PO ×2 (17:05)
[2019-12-08] MEDS ORDERED: LEVE500T53 PO (17:06)
[2019-12-08] MEDS ORDERED: SERT-237 PO (17:10)
[2019-12-08 18:08] LABS: BASOPHILS # (AUTO) 0.02 x10^3/uL (0-0.1); BASOPHILS % (AUTO) 0 % (0-1); EOSINOPHILS # (AUTO) 0.08 x10^3/uL (0-0.4); EOSINOPHILS % (AUTO) 1 % (1-7); LYMPHOCYTES # (AUTO) 2.21 x10^3/uL (1-3.4); LYMPHOCYTES % (AUTO) 27 % (22-44); MD NO; MEAN CORPUSCULAR HEMOGLOBIN 29.6 pg (27.5-34.5); MEAN CORPUSCULAR HGB CONC 33.8 g/dL (33.2-36.2); MEAN CORPUSCULAR VOLUME 87.6 fL (81-97); MEAN PLATELET VOLUME 9.4 fL (7.4-10.4); MONOCYTES # (AUTO) 0.53 x10^3/uL (0.2-0.8); MONOCYTES % (AUTO) 7 % (2-9); NEUTROPHILS # (AUTO) 5.32 x10^3/uL (1.8-6.8); NEUTROPHILS % (AUTO) 65 % (42-75); PLATELET COUNT 303 x10^3/uL (130-400); RED CELL DISTRIBUTION WIDTH 12.9 % (9.4-14.8)
[2019-12-08 18:10] LABS: AMPHETAMINE SCREEN, URINE Negative (Negative); BARBITURATE SCREEN, URINE Negative (Negative); BENZODIAZEPINE SCREEN, URINE Negative (Negative); CANNABINOID SCREEN, URINE Positive (Negative); COCAINE SCREEN, URINE Negative (Negative); METHADONE SCREEN, URINE Negative (Negative); OPIATE SCREEN, URINE Negative (Negative)
[2019-12-08 18:21] LABS: ALBUMIN 3.8 g/dL (3.4-5.0); ANION GAP 6 mmol/L (5-15); CALCIUM 9.1 mg/dL (8.5-10.1); CHLORIDE 109 mmol/L (98-107)
[2019-12-08 18:22] LABS: CREATININE 0.94 mg/dL (0.7-1.3); SALICYLATE LEVEL < 1.7 mg/dL (2.8-20.0)
--- NOTE | 2019-12-08 19:01 | NUR ---
REPORT RECIEVED FROM KENNY RN. PT RESTING ON [employer] WATCHING TV. PT PROVIDED MEAL UPON REQUEST. PT RESPORTS NO FURTHER NEEDS AT THIS TIME. ROOM SECURED, SITTER IN HALLWAY WITHIN LINE OF SIGHT.
[2019-12-08 19:50] VITALS: BP 127/78
--- NOTE | 2019-12-08 21:05 | NUR ---
YONY RN: CALLED MOBILE ASSESSMENT FOR [facility].
--- NOTE | 2019-12-08 21:11 | NUR ---
dr barboza called report given and stated to send pt to [facility] stated they have a bed
--- NOTE | 2019-12-08 22:18 | NUR ---
Spoke with Earnestine and she states she has not received any information on patient and the packet needs to be faxed to them and then they will evaluate patient and see if he is accepted
--- NOTE | 2019-12-08 22:47 | NUR ---
REPORT GIVEN TO [facility] NURSE AT THIS TIME.
--- NOTE | 2019-12-08 22:55 | NUR ---
[facility] TO ADMIT PT AFTER MIDNIGHT.
--- NOTE | 2019-12-09 00:15 | NUR ---
PT RESTING ON GURNEY WITH EYES CLOSED. RESPIRATIONS EVEN AND NONLABORED. ROOM SECURED. SITTER IN HALLWAY IN LINE OF SIGHT.
--- NOTE | 2019-12-09 00:20 | NUR ---
CALLED [facility], THEY ARE READY FOR PT.
--- NOTE | 2019-12-09 00:34 | NUR ---
KO called. Patient placed in will call. [facility] paged. Awaiting Auth code from [facility] at this time.
--- NOTE | 2019-12-09 00:35 | NUR ---
Accepting Doc at [facility] is Dr. Stallings
--- NOTE | 2019-12-09 01:02 | NUR ---
ASSUMED CARE OF PT TRANSFER TO [facility] IN PROGRESS AT THIS TIME
--- NOTE | 2019-12-09 01:03 | NUR ---
PT RESTING ON GURNEY WITH EYES CLOSED. RESPIRATIONS EVEN AND NONLABORED. ROOM SECURED. SITTER IN HALLWAY IN LINE OF SIGHT.
--- NOTE | 2019-12-09 02:16 | NUR ---
[facility] auth code and they have no update from [facility].
--- NOTE | 2019-12-09 02:38 | NUR ---
PT ASKED FOR WATER, WATER GIVEN AWAITING TPORT TO [facility]
--- NOTE | 2019-12-09 03:12 | NUR ---
OK called and no auth code from [facility] at this time still.
--- NOTE | 2019-12-09 04:03 | NUR ---
[facility] Auth Code [id number]
--- NOTE | 2019-12-09 05:30 | NUR ---
o remsa remsa here to take pt, pt in nad and ambulated to ambulaned in nad, 2 bags of belongings given t
== END 2019-12-09 05:33 ==
LOC: ED 19:59
DX: F33.9 Major depressive disorder, recurrent, unspecified (principal); R45.851 Suicidal ideations; F20.9 Schizophrenia, unspecified; F17.200 Nicotine dependence, unspecified, uncomplicated
CPT/HCPCS: 36415; 80048; 80307; 82040; 85025; 99285

== ENCOUNTER 2019-12-12 13:23 | Emergency (ER) | payer MEDICAID ==
[~2019-12-12] VITALS: Ht 185.4 cm; Wt 81.8 kg
[~2019-12-12 13:23] MED LIST changes: +LEVE500T53 PO; +SERT-237 PO
--- NOTE | 2019-12-12 13:29 | NUR ---
TASK RN: FIRST CONTACT WITH PT. [facility] with [facility] availability of a bed to pt. Pt states plan is to "overdose on heroin" and pt states this plan has been attempted "5 or 6 years ago". Pt admits to daily marijuana use and denies ETOH use. Pt states compliance with psych meds. Pt c/o chronic bilateral leg pain of 4/10. Pt in secured SI room and personal belongings removed and placed in personal belongigns bags and placed in ED locker. Sitter near room in direct line of sight for observation.
[2019-12-12] MEDS ORDERED: SERT50TA PO (13:38)
[2019-12-12] MEDS ORDERED: OLAN10TA3 PO (13:38)
[2019-12-12 14:17] LABS: BASOPHILS # (AUTO) 0.03 x10^3/uL (0-0.1); BASOPHILS % (AUTO) 0 % (0-1); EOSINOPHILS # (AUTO) 0.04 x10^3/uL (0-0.4); EOSINOPHILS % (AUTO) 0 % (1-7); LYMPHOCYTES # (AUTO) 1.67 x10^3/uL (1-3.4); LYMPHOCYTES % (AUTO) 19 % (22-44); MD NO; MEAN CORPUSCULAR HEMOGLOBIN 29.4 pg (27.5-34.5); MEAN CORPUSCULAR VOLUME 89.2 fL (81-97); MEAN PLATELET VOLUME 9.4 fL (7.4-10.4); MONOCYTES # (AUTO) 0.48 x10^3/uL (0.2-0.8); MONOCYTES % (AUTO) 6 % (2-9); NEUTROPHILS # (AUTO) 6.64 x10^3/uL (1.8-6.8); NEUTROPHILS % (AUTO) 75 % (42-75); PLATELET COUNT 257 x10^3/uL (130-400); RED BLOOD COUNT 5.04 x10^6/uL (4.38-5.82); RED CELL DISTRIBUTION WIDTH 13.5 % (9.4-14.8)
[2019-12-12 14:27] LABS: ALBUMIN 3.7 g/dL (3.4-5.0); ANION GAP 9 mmol/L (5-15); CALCIUM 8.9 mg/dL (8.5-10.1); CHLORIDE 105 mmol/L (98-107); SALICYLATE LEVEL < 1.7 mg/dL (2.8-20.0)
[2019-12-12 14:30] LABS: ALANINE AMINOTRANSFERASE 82 U/L (12-78); ALKALINE PHOSPHATASE 86 U/L (45-117); BILIRUBIN,TOTAL 0.4 mg/dL (0.2-1.0); CREATININE 0.87 mg/dL (0.7-1.3); TOTAL PROTEIN 7.3 g/dL (6.4-8.2)
[2019-12-12 14:31] LABS: AMPHETAMINE SCREEN, URINE Negative (Negative); BARBITURATE SCREEN, URINE Negative (Negative); BENZODIAZEPINE SCREEN, URINE Negative (Negative); CANNABINOID SCREEN, URINE Positive (Negative); COCAINE SCREEN, URINE Negative (Negative); METHADONE SCREEN, URINE Negative (Negative); OPIATE SCREEN, URINE Negative (Negative)
--- NOTE | 2019-12-12 15:23 | NUR ---
pt provided with meal tray. denies further needs at this time. sitter monitoring for safety
--- NOTE | 2019-12-12 15:43 | NUR ---
psych assess in progress with content designer
[2019-12-12] MEDS ORDERED: QUETIAPINE 25MG TABLET ONE (16:16)
[2019-12-12 16:20] VITALS: BP 144/76
[2019-12-12] MEDS ORDERED: QUETIAPINE 25MG TABLET PO ONE (16:30)
--- NOTE | 2019-12-12 17:14 | NUR ---
THROUGHPUT: BRYAN FAXED PER JONG (PSYCH KOSHER DIETARY SERVICE SUPERVISOR), RAMON RAUSCH TO SPEAK WITH [facility] MEZA RE: ACCEPTING PT, WILL CALL BACK. PRIMARY RN & JONG AWARE.
--- NOTE | 2019-12-12 18:05 | NUR ---
THROUGHPUT: CHERYL FROM [facility] DENIED PT D/T BENEFITS MAXED OUT- PARKING ATTENDANT (JONG) TO SEE PT IN ED.
== END 2019-12-12 19:00 | disposition home or self-care (01) ==
LOC: ED 14:25
DX: F20.0 Paranoid schizophrenia (principal); Z59.0 Homelessness
CPT/HCPCS: 36415; 80053; 80307; 85025; 99284

== ENCOUNTER 2019-12-14 16:43 | Emergency (ER) | payer MEDICAID ==
[~2019-12-14] VITALS: Ht 188 cm; Wt 90.0 kg
[~2019-12-14 16:43] MED LIST changes: +SERT50TA PO
[2019-12-14 16:47] VITALS: BP 135/88
== END 2019-12-14 17:17 | disposition home or self-care (01) ==
LOC: ED 17:10
DX: F20.9 Schizophrenia, unspecified (principal); F15.10 Other stimulant abuse, uncomplicated; F32.9 Major depressive disorder, single episode, unspecified
CPT/HCPCS: 99284

== ENCOUNTER 2019-12-14 19:06 | Emergency (ER) | payer MEDICAID ==
[~2019-12-14] VITALS: Ht 188 cm; Wt 93.1 kg
[2019-12-14 19:14] VITALS: BP 131/91
[2019-12-14] MEDS ORDERED: ACETAMINOPHEN 325 MG TABLET PO ONE (20:30)
[2019-12-14] MEDS ORDERED: ACETAMINOPHEN 325 MG TABLET ONE (20:31)
== END 2019-12-14 20:51 | disposition home or self-care (01) ==
LOC: ED 20:45
DX: R51 Headache (principal); Z72.9 Problem related to lifestyle, unspecified
CPT/HCPCS: 99283

== ENCOUNTER 2019-12-15 17:18 | Emergency (ER) | payer MEDICAID ==
[~2019-12-15] VITALS: Ht 182.9 cm; Wt 90.9 kg
--- NOTE | 2019-12-15 17:51 | NUR ---
BIB [facility] WHERE HE HAD REQUESTED DETENTION STAFF TO CALL 911 BECAUSE HE WAS FEELING SUICIDAL WITH PLAN TO JUMP OFF OF [address]. PT PRESENTS AMBULATORY WITH NO MEDICAL COMPLAINTS. STATES THAT HE WAS AT [facility] YESTERDAY AND THEY D/C HIM. HE WAS ALSO SEEN HERE AT [facility] AND HAD A F/U APPT AT THE [facility] WHERE HE WENT TODAY AND REC'D ABILIFY IM AND WAS GIVEN RX FOR AIBILIFY 15MG QAM, COGENTIN 2MG BID, GABAPENTIN 600MG TID, KEPPRA 500MG BID. PT STATES THAT HE WENT TO [facility] TO FILL THEM BUT WAS DENIED DUE TO NO INSURANCE BENEFITS. PT CHANGED INTO GOWN AND ALL BELONGINGS INCLUDDING HIS RX'S WERE PLACED IN 2 BAGS AND SECURED IN LOCKER. PT REQUESTING CALL LIGHT TO WATCH TV, SOMETHING TO DRINK AND A MEAL. FLUIDS AT BEDSIDE AND MEAL TRAY ORDERED. CALL LIGHT W/I REACH, GARAGE DOORS SECURED.
[2019-12-15 18:15] LABS: ALBUMIN 3.9 g/dL (3.4-5.0); ANION GAP 8 mmol/L (5-15); CALCIUM 9.4 mg/dL (8.5-10.1); CHLORIDE 107 mmol/L (98-107); CREATININE 0.82 mg/dL (0.7-1.3)
[2019-12-15 18:16] LABS: SALICYLATE LEVEL < 1.7 mg/dL (2.8-20.0)
[2019-12-15 18:24] LABS: BASOPHILS # (AUTO) 0.05 x10^3/uL (0-0.1); BASOPHILS % (AUTO) 1 % (0-1); EOSINOPHILS # (AUTO) 0.05 x10^3/uL (0-0.4); EOSINOPHILS % (AUTO) 1 % (1-7); LYMPHOCYTES # (AUTO) 2.66 x10^3/uL (1-3.4); LYMPHOCYTES % (AUTO) 35 % (22-44); MD NO; MEAN CORPUSCULAR HEMOGLOBIN 29.7 pg (27.5-34.5); MEAN CORPUSCULAR HGB CONC 33.7 g/dL (33.2-36.2); MEAN PLATELET VOLUME 9.9 fL (7.4-10.4); MONOCYTES # (AUTO) 0.58 x10^3/uL (0.2-0.8); MONOCYTES % (AUTO) 8 % (2-9); NEUTROPHILS # (AUTO) 4.32 x10^3/uL (1.8-6.8); NEUTROPHILS % (AUTO) 57 % (42-75); PLATELET COUNT 252 x10^3/uL (130-400); RED BLOOD COUNT 5.06 x10^6/uL (4.38-5.82); RED CELL DISTRIBUTION WIDTH 13.1 % (9.4-14.8)
--- NOTE | 2019-12-15 18:34 | NUR ---
URINE FOR DOA COLLECTED AND SENT TO LAB. MEAL TRAY, COFFEE, AND SPRITE PROVIDED. PT ATE 100% OF MEAL. WARM BLANKET PROVIDED. NAD NOTED PT WATCHING TV
[2019-12-15 18:55] LABS: AMPHETAMINE SCREEN, URINE Negative (Negative); BARBITURATE SCREEN, URINE Negative (Negative); BENZODIAZEPINE SCREEN, URINE Negative (Negative); CANNABINOID SCREEN, URINE Positive (Negative); COCAINE SCREEN, URINE Negative (Negative); METHADONE SCREEN, URINE Negative (Negative); OPIATE SCREEN, URINE Negative (Negative)
--- NOTE | 2019-12-15 18:55 | NUR ---
TRAV RPT TO MIRACLE BRYAN.
--- NOTE | 2019-12-15 19:07 | NUR ---
SBAR RPT INCLUDING REVIEW OF LABS AND PRIOR ED VISIT INFORMATION DISCUSSED WITH SOC DR. CRUMP.
--- NOTE | 2019-12-15 19:15 | NUR ---
PT RESTING ON GURNEY, NAD, RESPIRATIONS EVEN AND UNLABORED, DENIES NEEDS, AWAITING TELE PSYCH CONSULT
[2019-12-15 20:11] VITALS: BP 114/75
--- NOTE | 2019-12-15 20:24 | NUR ---
PROVIDED PT WITH ALL PERSONAL BELONGINGS
== END 2019-12-15 20:32 | disposition home or self-care (01) ==
LOC: ED 17:27
DX: F12.151 Cannabis abuse with psychotic disorder with hallucinations (principal); F17.200 Nicotine dependence, unspecified, uncomplicated; F32.9 Major depressive disorder, single episode, unspecified; F25.9 Schizoaffective disorder, unspecified
CPT/HCPCS: 36415; 80048; 80307; 82040; 85025; 99283

== ENCOUNTER 2019-12-16 07:46 | Emergency (ER) | payer MEDICAID ==
[~2019-12-16] VITALS: Ht 177.8 cm; Wt 80.0 kg
[2019-12-16 08:15] VITALS: BP 116/82
--- NOTE | 2019-12-16 08:32 | NUR ---
BIB [facility] SI WANTS TO JUMP OFF A BRIDGE INTO THE RIVER ROOM SECURED CLOTHING REMOVED SECURED
== END 2019-12-16 09:52 | disposition home or self-care (01) ==
LOC: ED 07:59
DX: R45.851 Suicidal ideations (principal); Z76.0 Encounter for issue of repeat prescription
CPT/HCPCS: 99283; 99284

== ENCOUNTER 2020-01-13 19:22 | Emergency (ER) | payer MEDICAID ==
[~2020-01-13] VITALS: Ht 185.4 cm; Wt 90.0 kg
--- NOTE | 2020-01-13 19:48 | NUR ---
Pt presents to ed w/ extensive hx of si/sa and recently d/c from [place] this afternoon w/ script of quetiapine. Pt ingested approximately 12, 400 mg, tabs of quetiapine @approximately 1900 this pm. All monitoring applied on pt. All belongings placed in 2 of 2 bags and placed in locker. roller door, excluding access to monitoring, in place. Sitter in hallway. PT given warm blanket for comfort. Awaiting md assessment.
--- NOTE | 2020-01-13 19:57 | NUR ---
for poison control. Poison control suggests getting a stat EKG for potential of qt prolongation, over 500 milliseconds will require magnesium. Monitor creatinine level. Potential for seizures as well according to poison control. BANK ADVISOR depression and anticholinergic effects, as well as sinus tachycardia and hypotension. Monitor pt for approximately 12 hours.
[2020-01-13] MEDS ORDERED: CHARCOAL/AQUEOUS 25 GM/120 ML PO ONE (20:00)
[2020-01-13] MEDS ORDERED: CHARCOAL/SORBITOL 50 GM/240 ML ONE (20:02)
--- NOTE | 2020-01-13 20:18 | NUR ---
Sz precautions put in place for potential of sz r/t od.
--- NOTE | 2020-01-13 20:59 | NUR ---
Pt sleeping comfortably on gurney. Rr even and unlabored. Easily rousable. Monitoring remains intact. Pt aware of need for ua.
[2020-01-13 21:11] LABS: BASOPHILS # (AUTO) 0.04 x10^3/uL (0-0.1); BASOPHILS % (AUTO) 1 % (0-1); EOSINOPHILS # (AUTO) 0.07 x10^3/uL (0-0.4); EOSINOPHILS % (AUTO) 1 % (1-7); LYMPHOCYTES # (AUTO) 2.34 x10^3/uL (1-3.4); LYMPHOCYTES % (AUTO) 29 % (22-44); MD NO; MEAN CORPUSCULAR HEMOGLOBIN 29.7 pg (27.5-34.5); MEAN CORPUSCULAR HGB CONC 33.9 g/dL (33.2-36.2); MEAN CORPUSCULAR VOLUME 87.6 fL (81-97); MEAN PLATELET VOLUME 9.7 fL (7.4-10.4); MONOCYTES # (AUTO) 0.61 x10^3/uL (0.2-0.8); MONOCYTES % (AUTO) 8 % (2-9); NEUTROPHILS # (AUTO) 5.08 x10^3/uL (1.8-6.8); NEUTROPHILS % (AUTO) 62 % (42-75); PLATELET COUNT 234 x10^3/uL (130-400); RED CELL DISTRIBUTION WIDTH 13.4 % (9.4-14.8)
[2020-01-13 21:12] LABS: ALBUMIN 3.7 g/dL (3.4-5.0); ANION GAP 6 mmol/L (5-15); CALCIUM 9.3 mg/dL (8.5-10.1); CHLORIDE 109 mmol/L (98-107); CREATININE 0.87 mg/dL (0.7-1.3); SALICYLATE LEVEL < 1.7 mg/dL (2.8-20.0)
--- NOTE | 2020-01-13 21:47 | NUR ---
Neuro status of pt has been unchanged since arrival to ed. Sleeping comfortably on gurney. Rr even and unlabored.
--- NOTE | 2020-01-13 23:09 | NUR ---
Pt sleeping comfortably on gurney. Rr even and unlabored. Nadn. All monitoring remains intact.
--- NOTE | 2020-01-14 01:37 | NUR ---
Pt sleeping comfortably on gurney. Rr even and unlabored. Nadn. All monitoring remains intact.
--- NOTE | 2020-01-14 02:35 | NUR ---
Troy venegas walked to pharmacy by this rn.
--- NOTE | 2020-01-14 02:44 | NUR ---
Hospital bed ordered at this time.
--- NOTE | 2020-01-14 03:31 | NUR ---
Pt tx to hospital bed at this time. Easily rousable. No immediate needs at this time.
--- NOTE | 2020-01-14 04:02 | NUR ---
RPT RECEIVED FROM MIRACLE BOBBY. PT RESTING WITH EYES CLOSED. MONITOR IN PLACE.
--- NOTE | 2020-01-14 04:03 | NUR ---
Pt report to nehemiah lyon Moved to 38.
--- NOTE | 2020-01-14 04:18 | NUR ---
Report from Jim RAUSCH.
--- NOTE | 2020-01-14 04:32 | NUR ---
Pt report to Lew osullivan. Pt bp lower than prior and henok warner made aware. 1 L bolus ordered by . This rn initiated per verbal order.
[2020-01-14] MEDS ORDERED: SODIUM CHLORIDE 0.9% 1,000 ML IV ONE (05:00)
--- NOTE | 2020-01-14 05:11 | NUR ---
Pt sleeping, equal chest rise no acute distress noted, sitter at bedside.
--- NOTE | 2020-01-14 06:52 | NUR ---
Report given to Christo RAUSCH.
--- NOTE | 2020-01-14 06:59 | NUR ---
Assumed care of pt at 0645. Report received from MIRACLE Hackett. Pt is sleeping in bed. Sittter at doorway.
--- NOTE | 2020-01-14 08:01 | NUR ---
Pt asleep in bed. Respirations are even and unlabored. BP currently 102/54. Sitter at doorway.
--- NOTE | 2020-01-14 09:01 | NUR ---
Pt still sleeping. Breathing even and unlabored. Breakfast tray remains untouched despite PSA attempt to get pt to eat a little. BP currently 113/64. Sitter at doorway.
--- NOTE | 2020-01-14 10:00 | NUR ---
Pt sleeping comfortably. Sitter by doorway, Q15 min checks in place.
--- NOTE | 2020-01-14 11:12 | NUR ---
Pt sleeping comfortably in bed. Sitter at doorway.
--- NOTE | 2020-01-14 11:45 | NUR ---
RN tried to get pt up so that Barbara Herrera APRN could assess him. And so that UA could be collected. RN also tried to encourage pt to drink more fluids to keep his BP up. Pt was very irritable and said he couldn't get up because "I took a bunch of Seroquel!".
--- NOTE | 2020-01-14 12:41 | NUR ---
UA collected at 1230, sent to lab.
[2020-01-14 13:09] LABS: AMPHETAMINE SCREEN, URINE Positive (Negative); BARBITURATE SCREEN, URINE Negative (Negative); BENZODIAZEPINE SCREEN, URINE Positive (Negative); CANNABINOID SCREEN, URINE Positive (Negative); COCAINE SCREEN, URINE Negative (Negative); METHADONE SCREEN, URINE Negative (Negative); OPIATE SCREEN, URINE Negative (Negative)
[2020-01-14] MEDS ORDERED: PRAZ1CAP2 PO (13:10)
[2020-01-14] MEDS ORDERED: DULO30CA2 PO (13:10)
[2020-01-14] MEDS ORDERED: TRAZ300T2 PO (13:10)
--- NOTE | 2020-01-14 13:12 | NUR ---
Pt resting comfortably in bed. Ate lunch. Sitter at bedside.
--- NOTE | 2020-01-14 13:58 | NUR ---
Pt sleeping. RR even and unlabored. No distress. Sitter at doorway.
--- NOTE | 2020-01-14 15:03 | NUR ---
Pt sleeping comfortably. Even and unlabored RR. Sitter posted at doorway.
--- NOTE | 2020-01-14 16:04 | NUR ---
Pt resting comfortably in bed. RR even and unlabored. Sitter at doorway.
--- NOTE | 2020-01-14 16:12 | NUR ---
Report given to MIRACLE Tabares for continuity of care.
--- NOTE | 2020-01-14 16:22 | NUR ---
RECEIVED REPORT FROM MIRACLE Villafuerte. PT RESTING ON SCOT. NADN. CASTILLO.
--- NOTE | 2020-01-14 17:08 | NUR ---
PT PROVIDED W/ SI DINNER TRAY. PT RESTING ON GURMAC. NADN. MONITORS REMAIN IN PLACE. SITTER REMAINS AT BEDSIDE.
[2020-01-14 17:31] VITALS: BP 113/60
--- NOTE | 2020-01-14 17:32 | NUR ---
PT SAT UP AND ATE 50% OF DINNER. SITTER REMAINS AT BEDSIDE.
== END 2020-01-14 18:18 | disposition home or self-care (01) ==
LOC: ED 22:33
DX: R45.851 Suicidal ideations (principal); T43.591A Poisoning by other antipsychotics and neuroleptics, accidental (unintentional), initial encounter; F17.200 Nicotine dependence, unspecified, uncomplicated; F25.9 Schizoaffective disorder, unspecified; Y92.9 Unspecified place or not applicable
CPT/HCPCS: 36415; 80048; 80307; 82040; 85025; 93005; 99284; J7030

== ENCOUNTER 2020-01-23 18:35 | Emergency (ER) | payer MEDICAID ==
[~2020-01-23] VITALS: Ht 190.5 cm; Wt 99.1 kg
[~2020-01-23 18:35] MED LIST changes: +DULO30CA2 PO; +PRAZ1CAP2 PO; +TRAZ300T2 PO
--- NOTE | 2020-01-23 18:53 | NUR ---
bedside report from abran chester
[2020-01-23 18:55] VITALS: BP 121/82
--- NOTE | 2020-01-23 18:58 | NUR ---
Provided bedside report to MIRACLE Yepez. All questions answered. Marleni RN to assume care of pt. Pt resting on gurney connected to NIBP cuff, continous pulse ox monitor, and monitoring and evaluation advisor. Bedrails up x 2 for safety measures and call light within reach. No needs expressed at this time.
== END 2020-01-23 20:13 | disposition home or self-care (01) ==
LOC: ED 20:00
DX: F15.10 Other stimulant abuse, uncomplicated (principal); F12.10 Cannabis abuse, uncomplicated; F17.210 Nicotine dependence, cigarettes, uncomplicated
CPT/HCPCS: 99283; 99406

== ENCOUNTER 2020-02-23 23:13 | Emergency (ER) | payer MEDICAID ==
[~2020-02-23] VITALS: Ht 182.9 cm; Wt 79.5 kg
[2020-02-23] MEDS ORDERED: LORazepam 1MG TABLET PO ONE (23:30)
[2020-02-23 23:43] LABS: BASOPHILS # (AUTO) 0.05 x10^3/uL (0-0.1); BASOPHILS % (AUTO) 1 % (0-1); EOSINOPHILS # (AUTO) 0.06 x10^3/uL (0-0.4); EOSINOPHILS % (AUTO) 1 % (1-7); LYMPHOCYTES # (AUTO) 2.76 x10^3/uL (1-3.4); LYMPHOCYTES % (AUTO) 40 % (22-44); MD NO; MEAN CORPUSCULAR HEMOGLOBIN 29.4 pg (27.5-34.5); MEAN CORPUSCULAR HGB CONC 33.4 g/dL (33.2-36.2); MEAN CORPUSCULAR VOLUME 88.1 fL (81-97); MEAN PLATELET VOLUME 10.3 fL (7.4-10.4); MONOCYTES # (AUTO) 0.53 x10^3/uL (0.2-0.8); MONOCYTES % (AUTO) 8 % (2-9); NEUTROPHILS # (AUTO) 3.54 x10^3/uL (1.8-6.8); NEUTROPHILS % (AUTO) 51 % (42-75); PLATELET COUNT 186 x10^3/uL (130-400); RED CELL DISTRIBUTION WIDTH 14.3 % (9.4-14.8)
[2020-02-23 23:50] LABS: ALANINE AMINOTRANSFERASE 165 U/L (12-78); ALBUMIN 3.7 g/dL (3.4-5.0); ANION GAP 7 mmol/L (5-15); CALCIUM 8.8 mg/dL (8.5-10.1); CHLORIDE 109 mmol/L (98-107); CREATININE 0.71 mg/dL (0.7-1.3)
[2020-02-23 23:52] LABS: ALKALINE PHOSPHATASE 100 U/L (45-117); BILIRUBIN,TOTAL 0.4 mg/dL (0.2-1.0); TOTAL PROTEIN 6.9 g/dL (6.4-8.2)
[2020-02-24 00:20] VITALS: BP 117/78
[2020-02-24] MEDS ORDERED: OXCA300T3 PO (14:41)
[2020-02-24] MEDS ORDERED: LEVE500T54 PO (14:41)
[2020-02-24] MEDS ORDERED: GABA300C10 PO (14:41)
== END 2020-02-24 00:49 | disposition home or self-care (01) ==
LOC: ED 23:43
DX: R56.9 Unspecified convulsions (principal); F17.210 Nicotine dependence, cigarettes, uncomplicated; Z72.9 Problem related to lifestyle, unspecified
CPT/HCPCS: 36415; 80053; 85025; 93005; 99284

== ENCOUNTER 2020-02-24 13:43 | Emergency (ER) | payer MEDICAID ==
[~2020-02-24] VITALS: Ht 190.5 cm; Wt 99.0 kg
[2020-02-24] MEDS ORDERED: LORazepam 2 MG/ML, 1ML ONE (14:06)
[2020-02-24 14:22] LABS: BASOPHILS # (AUTO) 0.02 x10^3/uL (0-0.1); BASOPHILS % (AUTO) 0 % (0-1); EOSINOPHILS # (AUTO) 0.02 x10^3/uL (0-0.4); EOSINOPHILS % (AUTO) 0 % (1-7); LYMPHOCYTES # (AUTO) 2.01 x10^3/uL (1-3.4); LYMPHOCYTES % (AUTO) 30 % (22-44); MD NO; MEAN CORPUSCULAR HEMOGLOBIN 29.4 pg (27.5-34.5); MEAN CORPUSCULAR HGB CONC 33.1 g/dL (33.2-36.2); MEAN CORPUSCULAR VOLUME 88.6 fL (81-97); MONOCYTES # (AUTO) 0.44 x10^3/uL (0.2-0.8); MONOCYTES % (AUTO) 7 % (2-9); NEUTROPHILS # (AUTO) 4.32 x10^3/uL (1.8-6.8); NEUTROPHILS % (AUTO) 63 % (42-75); PLATELET COUNT 200 x10^3/uL (130-400); RED BLOOD COUNT 5.35 x10^6/uL (4.38-5.82); RED CELL DISTRIBUTION WIDTH 13.9 % (9.4-14.8)
[2020-02-24] MEDS ORDERED: SODIUM CHLORIDE FLUSH 10ML SYR IVF ONE (14:30)
[2020-02-24] MEDS ORDERED: LORazepam 2 MG/ML, 1ML IVPush ONE (14:30)
[2020-02-24 14:33] LABS: ALBUMIN 3.7 g/dL (3.4-5.0); ANION GAP 8 mmol/L (5-15); CHLORIDE 108 mmol/L (98-107); CREATININE 0.91 mg/dL (0.7-1.3)
[2020-02-24] MEDS ORDERED: DIPHENHYDRAMINE 25 MG CAPSULE ONE (14:37)
[2020-02-24 14:39] VITALS: BP 126/80
[2020-02-24] MEDS ORDERED: GABA300C10 PO (14:41)
[2020-02-24] MEDS ORDERED: OXCA300T3 PO (14:41)
[2020-02-24] MEDS ORDERED: LEVE500T54 PO (14:41)
--- NOTE | 2020-02-24 14:41 | NUR ---
given crackers/meds per jan. nad. awaitign xr restuls. vss. sz precs in place. call aracelis. as
[2020-02-24] MEDS ORDERED: LEVETIRACETAM 500 MG TABLET PO ONE (15:00)
[2020-02-24] MEDS ORDERED: DIPHENHYDRAMINE 25 MG CAPSULE PO ONE (15:00)
[2020-02-24] MEDS ORDERED: LEVETIRACETAM 500 MG TABLET ONE (15:02)
== END 2020-02-24 15:23 | disposition home or self-care (01) ==
LOC: ED 14:03
DX: G40.409 Other generalized epilepsy and epileptic syndromes, not intractable, without status epilepticus (principal); Z76.0 Encounter for issue of repeat prescription
CPT/HCPCS: 36415; 71045; 80048; 82040; 85025; 96374; 99285; J2060; Q0163

== ENCOUNTER 2020-02-24 21:23 | Emergency (ER) | payer MEDICAID ==
[~2020-02-24] VITALS: Ht 172.7 cm; Wt 100.0 kg
[~2020-02-24 21:23] MED LIST changes: +GABA300C10 PO; +LEVE500T54 PO; +OXCA300T3 PO
[2020-02-24 21:25] VITALS: BP 102/56
--- NOTE | 2020-02-24 21:38 | NUR ---
TIP donaldson; picked up at the [facility]. Patient walked in and stated he was going to have a seizure. Patient has a hx of seizures. No seizure witnessed by bystanders. ERP evaluated patient; patient was seen earlier today and given a rx to get filled. Patient advised to get rx filled. Advised [facility] pharmacy is open. Discharge instructions given. All questions and concerns addressed. Patient ambulatory with a steady gait. Belongings with patient.
== END 2020-02-24 21:41 | disposition home or self-care (01) ==
LOC: ED 21:35
DX: G40.909 Epilepsy, unspecified, not intractable, without status epilepticus (principal); F17.200 Nicotine dependence, unspecified, uncomplicated; Z91.14 Patient's other noncompliance with medication regimen
CPT/HCPCS: 99283

== ENCOUNTER 2020-02-28 13:55 | Emergency (ER) | payer MEDICAID ==
[~2020-02-28] VITALS: Ht 190.5 cm; Wt 92.7 kg
[2020-02-28] MEDS ORDERED: PRAZ1CAP2 PO (14:23)
[2020-02-28] MEDS ORDERED: SERT50TA PO (14:23)
[2020-02-28] MEDS ORDERED: TRAZ300T2 PO (14:23)
[2020-02-28 15:37] VITALS: BP 132/78
--- NOTE | 2020-02-28 15:52 | NUR ---
CARE FOR DC ONLY. PT LAYING ON GURNEY, NO ACUTE DISTRESS. NO IV TO DC. REVEIWED DC INSTRUCTIONS WITH PT, UNDERSTANDING VERBALIZED. PT TO LEAVE AMB.
--- NOTE | 2020-02-28 15:59 | NUR ---
PT LEFT DISCHARGE INSTRUCTIONS ON SCOT.
== END 2020-02-28 15:56 | disposition home or self-care (01) ==
LOC: ED 14:21
DX: B34.9 Viral infection, unspecified (principal); F17.200 Nicotine dependence, unspecified, uncomplicated
CPT/HCPCS: 71045; 87081; 87880; 99284

== ENCOUNTER 2020-03-13 02:28 | Emergency (ER) | payer MEDICAID ==
[~2020-03-13] VITALS: Ht 190.5 cm; Wt 82.0 kg
[2020-03-13 02:36] VITALS: BP 120/71
--- NOTE | 2020-03-13 02:43 | NUR ---
THIS IS 34 YO MALE BIB [facility] FROM [facility] FOR "COUGH X2 WEEKS, AND MADE SI COMMENTS". PATIENT SPEAKING IN FUL SENTENCES, RESPIRATIONS EVEN AND UNLABORED. NO COUGH AT THIS TIME, LUNG SOUNDS CLEAR THROUGHOUT. PATIENT STATES SI WITH NO PLAN IN PLACE. VSS, 96% ON RA. A&OX4. ROOM SECURED, BELONGING TO SAFE KEEPING. CALL LIGHT IN REACH, ER PA TO ROOM
--- NOTE | 2020-03-13 02:47 | NUR ---
PATIENT NOW DENYING SI/HI WITH PA, PATIENT INSTRUCTED TO GET DRESS IN OWN CLOTHING. TO BE DISCHARGED.
--- NOTE | 2020-03-13 02:58 | NUR ---
Patient given discharge instructions and they have confirmed that they understand the instructions. Patient ambulatory with steady gait.
== END 2020-03-13 02:59 | disposition home or self-care (01) ==
LOC: ED 02:35
DX: F33.9 Major depressive disorder, recurrent, unspecified (principal); F17.200 Nicotine dependence, unspecified, uncomplicated; F15.20 Other stimulant dependence, uncomplicated; F25.9 Schizoaffective disorder, unspecified; G40.909 Epilepsy, unspecified, not intractable, without status epilepticus; Z72.9 Problem related to lifestyle, unspecified; Z91.14 Patient's other noncompliance with medication regimen
CPT/HCPCS: 99284

== ENCOUNTER 2020-03-22 15:29 | Emergency (ER) | payer MEDICAID ==
[~2020-03-22] VITALS: Ht 190.5 cm; Wt 81.8 kg
[2020-03-22] MEDS ORDERED: LORazepam 1MG TABLET ONE (15:47)
[2020-03-22] MEDS ORDERED: LORazepam 1MG TABLET PO ONE (16:00)
[2020-03-22 16:05] LABS: BASOPHILS # (AUTO) 0.03 x10^3/uL (0-0.1); BASOPHILS % (AUTO) 0 % (0-1); EOSINOPHILS # (AUTO) 0.08 x10^3/uL (0-0.4); EOSINOPHILS % (AUTO) 1 % (1-7); LYMPHOCYTES # (AUTO) 2.53 x10^3/uL (1-3.4); LYMPHOCYTES % (AUTO) 38 % (22-44); MD NO; MEAN CORPUSCULAR HEMOGLOBIN 29.3 pg (27.5-34.5); MEAN CORPUSCULAR HGB CONC 33.4 g/dL (33.2-36.2); MEAN CORPUSCULAR VOLUME 87.8 fL (81-97); MEAN PLATELET VOLUME 10.8 fL (7.4-10.4); MONOCYTES # (AUTO) 0.45 x10^3/uL (0.2-0.8); MONOCYTES % (AUTO) 7 % (2-9); NEUTROPHILS # (AUTO) 3.55 x10^3/uL (1.8-6.8); NEUTROPHILS % (AUTO) 54 % (42-75); PLATELET COUNT 162 x10^3/uL (130-400); RED BLOOD COUNT 5.31 x10^6/uL (4.38-5.82); RED CELL DISTRIBUTION WIDTH 14.6 % (9.4-14.8)
[2020-03-22 16:08] LABS: ALBUMIN 3.7 g/dL (3.4-5.0); ANION GAP 7 mmol/L (5-15); CALCIUM 8.7 mg/dL (8.5-10.1); CHLORIDE 108 mmol/L (98-107); CREATININE 0.77 mg/dL (0.7-1.3)
--- NOTE | 2020-03-22 16:16 | NUR ---
FOOD TRAY AND WARM BLANKET PROVIDED.
[2020-03-22 16:49] VITALS: BP 116/78
== END 2020-03-22 16:51 | disposition home or self-care (01) ==
LOC: ED 16:30
DX: R56.9 Unspecified convulsions (principal); E87.6 Hypokalemia; R41.0 Disorientation, unspecified; F17.200 Nicotine dependence, unspecified, uncomplicated
CPT/HCPCS: 36415; 80048; 82040; 85025; 93005; 99284

== ENCOUNTER 2020-04-27 07:40 | Emergency (ER) | payer MEDICAID ==
[~2020-04-27] VITALS: Ht 190.5 cm; Wt 78.1 kg
[2020-04-27] MEDS ORDERED: LORazepam 2 MG/ML, 1ML IVPush ONE (08:00)
[2020-04-27] MEDS ORDERED: SODIUM CHLORIDE FLUSH 10ML SYR IVF ONE (08:00)
[2020-04-27] MEDS ORDERED: PLEASE ENTER ALLERGIES MC SCH (08:00)
--- NOTE | 2020-04-27 08:24 | NUR ---
PT STATES HX OF SIEZURES, STATES HIS MEDICATIONS WERE STOLEN. PT ADMITS TO METH AND HEROIN USE WELL THIS AM. PT PLACED ON SEIZURE PRECAUTIONS, PADS IN PLACE. PT PLACED ON MONITORS, VSS. PT IS ALERT AND AWAKE, PROTECTING OWN AIRWAY WELL. ATTEMPT X2 TO START IV, NO SUCCESS. EDTECH ADVANCED AT BEDSIDE TO ATTEMPT IV PLACEMENT. WILL MEDICATE PER ORDERS WHEN IV OBTAINED.
[2020-04-27] MEDS ORDERED: LORazepam 2 MG/ML, 1ML ONE (08:42)
[2020-04-27 08:43] LABS: BASOPHILS # (AUTO) 0.03 x10^3/uL (0-0.1); BASOPHILS % (AUTO) 0 % (0-1); EOSINOPHILS # (AUTO) 0.03 x10^3/uL (0-0.4); EOSINOPHILS % (AUTO) 1 % (1-7); LYMPHOCYTES # (AUTO) 1.51 x10^3/uL (1-3.4); LYMPHOCYTES % (AUTO) 25 % (22-44); MD NO; MEAN CORPUSCULAR HEMOGLOBIN 29.5 pg (27.5-34.5); MEAN CORPUSCULAR HGB CONC 33.7 g/dL (33.2-36.2); MEAN CORPUSCULAR VOLUME 87.6 fL (81-97); MEAN PLATELET VOLUME 10.1 fL (7.4-10.4); MONOCYTES # (AUTO) 0.36 x10^3/uL (0.2-0.8); MONOCYTES % (AUTO) 6 % (2-9); NEUTROPHILS # (AUTO) 4.11 x10^3/uL (1.8-6.8); NEUTROPHILS % (AUTO) 68 % (42-75); PLATELET COUNT 204 x10^3/uL (130-400); RED BLOOD COUNT 5.48 x10^6/uL (4.38-5.82); RED CELL DISTRIBUTION WIDTH 14.1 % (9.4-14.8)
--- NOTE | 2020-04-27 08:46 | NUR ---
IV STARTED, PT MEDICATED PER ORDERS. WILL GIVE PT MEAL TRAY SHORTLY, POST ATIVAN ADMINISTRATION.
[2020-04-27 08:54] LABS: ALBUMIN 3.7 g/dL (3.4-5.0); ANION GAP 6 mmol/L (5-15); CALCIUM 8.9 mg/dL (8.5-10.1); CHLORIDE 109 mmol/L (98-107); CREATININE 0.83 mg/dL (0.7-1.3)
--- NOTE | 2020-04-27 09:08 | NUR ---
PT REMAINS ALERT AND ORIENTED. GIVEN MEAL TRAY. PT REMAINS ON MONITORS. CONT TO MONITOR.
--- NOTE | 2020-04-27 09:55 | NUR ---
PT D/C'D PER ORDERS. PT HAS STEADY, GAIT, ABLE TO CARE FOR SELF. PT HAS ALL OWN BELONGINGS UPON D/C. PT REFUSED D/C PAPERWORK.
[2020-04-27 09:57] VITALS: BP 121/67
== END 2020-04-27 09:59 | disposition home or self-care (01) ==
LOC: ED 08:52
DX: G40.409 Other generalized epilepsy and epileptic syndromes, not intractable, without status epilepticus (principal); R94.31 Abnormal electrocardiogram [ECG] [EKG]
CPT/HCPCS: 36415; 80048; 82040; 85025; 93005; 96374; 99284; J2060

== ENCOUNTER 2020-04-28 16:38 | Emergency (ER) | payer MEDICAID ==
[~2020-04-28] VITALS: Ht 190.5 cm; Wt 88.0 kg
[2020-04-28 16:43] VITALS: BP 89/40
--- NOTE | 2020-04-28 17:13 | NUR ---
PT REQUESTING TV REMOTE, ALL LIGHTS OFF, WARM BLANKETS AND A PILLOW. DENIES ANY FURTHER NEEDS OR CONCERNS, CALL LIGHT IN REACH.
[2020-04-28] MEDS ORDERED: LEVETIRACETAM 500 MG TABLET ONE (17:29)
[2020-04-28] MEDS ORDERED: LEVETIRACETAM 500 MG TABLET PO ONE (17:30)
== END 2020-04-28 17:49 | disposition home or self-care (01) ==
LOC: ED 17:00
DX: R56.9 Unspecified convulsions (principal); F11.10 Opioid abuse, uncomplicated; F15.10 Other stimulant abuse, uncomplicated; F17.200 Nicotine dependence, unspecified, uncomplicated; Z72.9 Problem related to lifestyle, unspecified
CPT/HCPCS: 99283

== ENCOUNTER 2020-05-08 04:31 | Emergency (ER) | payer MEDICAID ==
[~2020-05-08] VITALS: Ht 190.5 cm; Wt 80.0 kg
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
--- NOTE | 2020-05-08 04:58 | NUR ---
PT REPORTS PAIN DOWN IN TESTICLES, UPDATED PROVIDER FOR PAIN MEDICATION ORDER. PT TAKEN TO ULTRASOUND.
[2020-05-08] MEDS ORDERED: HYDROcodone/APAP 5/325 TABLET PO ONE (05:00)
[2020-05-08] MEDS ORDERED: HYDROcodone/APAP 5/325 TABLET ONE (05:06)
--- NOTE | 2020-05-08 06:03 | NUR ---
PT UNABLE TO LEAVE URINE SAMPLE AT THIS TIME, PROVIDED WATER.
--- NOTE | 2020-05-08 06:58 | NUR ---
REPORT GIVEN TO TAD RAUSCH.
--- NOTE | 2020-05-08 07:00 | NUR ---
REPORT FROM REYNA. INFORMED PT NEED OF UA
--- NOTE | 2020-05-08 08:24 | NUR ---
PT STOOD BEDSIDE TO PROVIDE UA SAMPLE. UA SENT. VSS
[2020-05-08 08:30] LABS: MICROSCOPIC INDICATED
--- NOTE | 2020-05-08 09:30 | NUR ---
PT SLEEPING. LABS PENDING
[2020-05-08 10:03] LABS: BASOPHILS # (AUTO) 0.01 x10^3/uL (0-0.1); BASOPHILS % (AUTO) 0 % (0-1); EOSINOPHILS # (AUTO) 0.11 x10^3/uL (0-0.4); EOSINOPHILS % (AUTO) 1 % (1-7); LYMPHOCYTES % (AUTO) 18 % (22-44); MD NO; MEAN CORPUSCULAR HEMOGLOBIN 29.6 pg (27.5-34.5); MEAN CORPUSCULAR HGB CONC 33.4 g/dL (33.2-36.2); MEAN CORPUSCULAR VOLUME 88.7 fL (81-97); MEAN PLATELET VOLUME 9.5 fL (7.4-10.4); MONOCYTES # (AUTO) 0.47 x10^3/uL (0.2-0.8); MONOCYTES % (AUTO) 5 % (2-9); NEUTROPHILS # (AUTO) 6.62 x10^3/uL (1.8-6.8); NEUTROPHILS % (AUTO) 75 % (42-75); PLATELET COUNT 164 x10^3/uL (130-400); RED BLOOD COUNT 4.87 x10^6/uL (4.38-5.82); RED CELL DISTRIBUTION WIDTH 14.2 % (9.4-14.8)
[2020-05-08 10:14] LABS: ALANINE AMINOTRANSFERASE 99 U/L (12-78); ALBUMIN 3.3 g/dL (3.4-5.0); ANION GAP 8 mmol/L (5-15); CALCIUM 8.7 mg/dL (8.5-10.1); CHLORIDE 108 mmol/L (98-107); CREATININE 0.86 mg/dL (0.7-1.3)
[2020-05-08 10:16] LABS: ALKALINE PHOSPHATASE 114 U/L (45-117); BILIRUBIN,TOTAL 1.1 mg/dL (0.2-1.0); TOTAL PROTEIN 6.1 g/dL (6.4-8.2)
--- NOTE | 2020-05-08 10:30 | NUR ---
pt sleeping. to dc soon
--- NOTE | 2020-05-08 11:35 | NUR ---
Patient/Caregiver given discharge instructions and they have confirmed that they understand the instructions. Patient ambulatory with steady gait.
[2020-05-08 11:36] VITALS: BP 120/72
== END 2020-05-08 11:37 | disposition home or self-care (01) ==
LOC: ED 05:28
DX: N48.22 Cellulitis of corpus cavernosum and penis (principal); I86.1 Scrotal varices
CPT/HCPCS: 36415; 76870; 80053; 81001; 85025; 87086; 99284

== ENCOUNTER 2020-05-29 07:18 | Emergency (ER) | payer MEDICAID ==
[~2020-05-29] VITALS: Ht 190.5 cm; Wt 78.0 kg
--- NOTE | 2020-05-29 07:25 | NUR ---
biba. pt c/o abd pain with nausea. pt used heroin yesterday. pt wants detox. hx of sz. pt was kicked out from [facility] about 2 weeks ago d/t aggressive behavior. pt's aox4. resps even and unlabored. bp/spo2 monitors in place. call light within reach. ekg done at bedside by emt.
[2020-05-29] MEDS ORDERED: PROMETHAZINE 25 MG/ML, 1ML ONE (07:35)
[2020-05-29] MEDS ORDERED: FAMOTIDINE 20 MG/2 ML ONE (07:35)
--- NOTE | 2020-05-29 07:56 | NUR ---
pt provided urine sample. urine collected. ua sent at this time.
--- NOTE | 2020-05-29 07:56 | NUR ---
piv est on l ac with no complications. pt medicated per emar. ns infusing at this time. pt tolerated well.
[2020-05-29] MEDS ORDERED: SODIUM CHLORIDE 0.9% 1,000ML IVBOLUS ONE (08:00)
[2020-05-29] MEDS ORDERED: PROMETHAZINE 25 MG/ML, 1ML IM ONE (08:00)
[2020-05-29] MEDS ORDERED: FAMOTIDINE 20 MG/2 ML IV ONE (08:00)
[2020-05-29 08:02] LABS: BASOPHILS # (AUTO) 0.03 x10^3/uL (0-0.1); BASOPHILS % (AUTO) 0 % (0-1); EOSINOPHILS # (AUTO) 0.07 x10^3/uL (0-0.4); EOSINOPHILS % (AUTO) 1 % (1-7); LYMPHOCYTES # (AUTO) 1.39 x10^3/uL (1-3.4); LYMPHOCYTES % (AUTO) 19 % (22-44); MD NO; MEAN CORPUSCULAR HEMOGLOBIN 29.7 pg (27.5-34.5); MEAN CORPUSCULAR HGB CONC 33.8 g/dL (33.2-36.2); MEAN CORPUSCULAR VOLUME 88.1 fL (81-97); MEAN PLATELET VOLUME 9.6 fL (7.4-10.4); MONOCYTES # (AUTO) 0.36 x10^3/uL (0.2-0.8); MONOCYTES % (AUTO) 5 % (2-9); NEUTROPHILS # (AUTO) 5.48 x10^3/uL (1.8-6.8); NEUTROPHILS % (AUTO) 75 % (42-75); PLATELET COUNT 246 x10^3/uL (130-400); RED BLOOD COUNT 5.73 x10^6/uL (4.38-5.82); RED CELL DISTRIBUTION WIDTH 14.3 % (9.4-14.8)
[2020-05-29 08:19] LABS: ALANINE AMINOTRANSFERASE 110 U/L (12-78); ANION GAP 6 mmol/L (5-15); CALCIUM 9.1 mg/dL (8.5-10.1); CHLORIDE 100 mmol/L (98-107)
[2020-05-29 08:20] LABS: MICROSCOPIC INDICATED
[2020-05-29 08:21] LABS: ALKALINE PHOSPHATASE 140 U/L (45-117); BILIRUBIN,TOTAL 1.3 mg/dL (0.2-1.0); TOTAL PROTEIN 7.8 g/dL (6.4-8.2)
[2020-05-29] MEDS ORDERED: SODIUM CHLORIDE FLUSH 10ML SYR IVF ONE (08:30)
--- NOTE | 2020-05-29 08:43 | NUR ---
diet tray ordered per edmd verbal order at this time.
--- NOTE | 2020-05-29 08:57 | NUR ---
REPORT FROM VINAY RAUSCH.
--- NOTE | 2020-05-29 09:01 | NUR ---
report given to marjorie osullivan.
--- NOTE | 2020-05-29 09:18 | NUR ---
VSS. PT DEMANDING FOOD. TOLD TO WAIT FOR CT. VERBALLY AGGRESSIVE.
[2020-05-29 09:23] VITALS: BP 105/71
--- NOTE | 2020-05-29 09:32 | NUR ---
AWAITING US RESULTS.
--- NOTE | 2020-05-29 09:43 | NUR ---
pt can eat per pa, pt verbally aggressive w/ pa. piv removed. givn food. as
== END 2020-05-29 10:05 | disposition home or self-care (01) ==
LOC: ED 07:22
DX: F11.10 Opioid abuse, uncomplicated (principal); F41.9 Anxiety disorder, unspecified; R11.10 Vomiting, unspecified; I51.7 Cardiomegaly
CPT/HCPCS: 36415; 76700; 80053; 81001; 83690; 85025; 93005; 96361; 96372; 96374; 99285; J2550; J3490; J7030

== ENCOUNTER 2020-06-08 08:49 | Emergency (ER) | payer MEDICAID ==
[~2020-06-08] VITALS: Ht 190.5 cm; Wt 78.0 kg
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
--- NOTE | 2020-06-08 09:23 | NUR ---
REPORT TAKEN FROM MIRACLE KUMAR AT BEDSIDE, CARE ASSUMED BY THIS RN. PT A&O, RESPS EVEN AND UNLABORED. PT ANXIOUS BUT COOPERATIVE. ALL BELONGINGS BAGGED, LABELED AND PLACED IN LOCKED CABINET FOR SAFEKEEPING. PT IN GOWN. PT PROVIDED WITH WARM BLANKET AND PILLOW. CALL LIGHT PROVIDED, PT INSTRUCTED ON USE. SITTER REQUESTED FOR SAFETY. LABS DRAWN, URINE SENT TO LAB. PT PROVIDED WITH SPRITE IN STYROFOAM CUP WITH EDPA OK. MEAL ORDERED WITH EDPA OK.
[2020-06-08 09:32] LABS: BASOPHILS # (AUTO) 0.02 x10^3/uL (0-0.1); BASOPHILS % (AUTO) 0 % (0-1); EOSINOPHILS # (AUTO) 0.17 x10^3/uL (0-0.4); EOSINOPHILS % (AUTO) 3 % (1-7); LYMPHOCYTES # (AUTO) 1.93 x10^3/uL (1-3.4); LYMPHOCYTES % (AUTO) 32 % (22-44); MD NO; MEAN CORPUSCULAR HEMOGLOBIN 29.1 pg (27.5-34.5); MEAN CORPUSCULAR VOLUME 88.2 fL (81-97); MEAN PLATELET VOLUME 9.5 fL (7.4-10.4); MONOCYTES # (AUTO) 0.35 x10^3/uL (0.2-0.8); MONOCYTES % (AUTO) 6 % (2-9); NEUTROPHILS # (AUTO) 3.62 x10^3/uL (1.8-6.8); NEUTROPHILS % (AUTO) 59 % (42-75); PLATELET COUNT 217 x10^3/uL (130-400); RED BLOOD COUNT 5.05 x10^6/uL (4.38-5.82); RED CELL DISTRIBUTION WIDTH 14.9 % (9.4-14.8)
[2020-06-08] MEDS ORDERED: LORazepam 1MG TABLET ONE ×2 (09:53→18:48)
[2020-06-08 09:54] LABS: ALBUMIN 3.7 g/dL (3.4-5.0); CALCIUM 8.9 mg/dL (8.5-10.1)
[2020-06-08 09:59] LABS: AMPHETAMINE SCREEN, URINE Positive (Negative); BARBITURATE SCREEN, URINE Negative (Negative); BENZODIAZEPINE SCREEN, URINE Negative (Negative); CANNABINOID SCREEN, URINE Positive (Negative); COCAINE SCREEN, URINE Negative (Negative); METHADONE SCREEN, URINE Negative (Negative); OPIATE SCREEN, URINE Negative (Negative)
[2020-06-08 10:09] LABS: SALICYLATE LEVEL < 1.7 mg/dL (2.8-20.0)
--- NOTE | 2020-06-08 10:15 | NUR ---
PT MEDICATED PER EMAR BY TASK RN FOR ANXIETY, PT PROVIDED WITH SI MEAL TRAY. SITTER AT BEDSIDE FOR SAFETY. PT EATING BREAKFAST CALMLY AT THIS TIME.
[2020-06-08 10:24] LABS: ANION GAP 5 mmol/L (5-15); CHLORIDE 107 mmol/L (98-107); CREATININE 0.88 mg/dL (0.7-1.3)
[2020-06-08] MEDS ORDERED: LORazepam 1MG TABLET PO ONE ×2 (10:30→19:00)
--- NOTE | 2020-06-08 11:00 | NUR ---
late entry for 1100: pt consumed meal tray 100%. sitter monitoring from [facility] for safety. pt resting on gurney, resps even and unlabored.
--- NOTE | 2020-06-08 11:52 | NUR ---
pt sleeping on gurney, resps even and unlabored. bp and spo2 monitors in place. sitter monitoring from hallway for safety. awaiting psyc geoscience professor eval and dispo.
--- NOTE | 2020-06-08 12:29 | NUR ---
PT SLEEPING, RESPS EVEN AND UNLABORED. SPO2 >90% ON ROOM AIR. SITTER MONITORING FROM [facility] FOR SAFETY. SI LUNCH TRAY PROVIDED AT BEDSIDE.
--- NOTE | 2020-06-08 13:13 | NUR ---
pt requesting second lunch tray, first tray consumed 100%. pt has no other complaint. legal hold placed by nita ramirez, pt awaiting placement at this time. sitter monitoring from [facility] safetyrufina.
[2020-06-08] MEDS ORDERED: OLANZAPINE 10 MG TABLET PO SCH (13:30)
[2020-06-08] MEDS ORDERED: PERMETHRIN CRM 5%, 60GM ONE (13:54)
[2020-06-08 14:00] VITALS: BP 113/69
[2020-06-08] MEDS ORDERED: NICOTINE 21 MG/24 HR PATCH.TD24 TD PRN (14:00)
--- NOTE | 2020-06-08 14:05 | NUR ---
pt called RN into room, states "I have lice, I'm so itchy." this was not reported prior. louse found on pt, caught in speciman cup, in room. door closed. EDMD Ho notified. Eliminite cream ordered for decon. Pt refuses to apply himself, staff to assist pt with application.
[2020-06-08] MEDS ORDERED: PERMETHRIN CRM 5%, 60GM TP ONE (14:30)
--- NOTE | 2020-06-08 14:34 | NUR ---
ELIMINITE CREAM APPLIED, PT TO HAVE SHOWER IN APPROX 8 HRS TO REMOVE CREAM/LICE. PT TOLERATED WELL.
--- NOTE | 2020-06-08 14:40 | NUR ---
late entry for 1440: hot metal charger notified pt's belongings are in security locker, belongings taken out and double bagged, placed back in secure locker per hot metal charger's instructions.
--- NOTE | 2020-06-08 15:00 | NUR ---
med orders noted, pt sleeping. resps even and unlabored. meds to be given once pt awakens. sitter monitoring from [facility] for safety.
--- NOTE | 2020-06-08 15:04 | NUR ---
PACKET FAXED TO [facility], [facility] AND [facility]
--- NOTE | 2020-06-08 15:43 | NUR ---
report given to MIRACLE Turner , pt sleeping, resps even and unlabored. sitter monitoring from [facility] for safety.
--- NOTE | 2020-06-08 15:51 | NUR ---
REPORT RECEIVED FROM YRIS RAUSCH. PT SLEEPING ON GURNEY W/ SITTER OUTSIDE ROOM. RESP EVEN AND UNLABORED, PARDEEP.
--- NOTE | 2020-06-08 16:00 | NUR ---
PT SLEEPING ON GURNEY W/ SITTER OUTSIDE ROOM. RESP EVEN AND UNLABORED, PARDEEP.
--- NOTE | 2020-06-08 16:46 | NUR ---
REPORT GIVEN TO JEANETTE RAUSCH AT [facility]. WILL CALL BACK IF THEY ARE ABLE TO TAKE PT.
--- NOTE | 2020-06-08 17:00 | NUR ---
PT SLEEPING ON GURNEY W/ SITTER OUTSIDE ROOM. RESP EVEN AND UNLABORED, PARDEEP.
[2020-06-08] MEDS ORDERED: OLANZAPINE 10 MG TABLET ONE (17:32)
[2020-06-08] MEDS ORDERED: NICOTINE 21 MG/24 HR PATCH.TD24 ONE (17:33)
--- NOTE | 2020-06-08 17:42 | NUR ---
PT REFUSED NICOTINE PATCH.
--- NOTE | 2020-06-08 17:47 | NUR ---
PT TO SHOWER AT 2030 TONIGHT. PER NIGHAT DOYLE [facility] WILL ACCEPT PT 1 HOUR POST SHOWER.
--- NOTE | 2020-06-08 18:44 | NUR ---
PT YELLING IN ROOM. WHEN THIS RN ASKED PT TO KEEP HIS VOICE DOWN TO BE RESPECTFUL OF OTHER PATIENTS HE STATES "THATS GOING TO BE FUCKING HARD, I TOLD YOU I NEED SOMETHING TO PUT ME THE FUCK OUT". PLAN OF CARE REVIEWED W/ PT, PT STILL AGITATED.
--- NOTE | 2020-06-08 18:57 | NUR ---
PT DEMANDING HALDOL, STATES ITS THE ONLY THING THAT WILL CALM HIM DOWN, PUNCHING GURNEY. PT EDUCATED ON NEED FOR HIM TO STAY ALERT SO HE CAN SHOWER IN 90 MINUTES. ATIVAN AVAILABLE FOR PT. PT SCREAMING THAT HE ONLY WANTS HALDOL. AFTER REPEADTELY EXPLAINING HIS OPTION IN THIS MOMENT HE AGREED TO TAKE PO ATIVAN.
--- NOTE | 2020-06-08 20:03 | NUR ---
PT SLEEPING ON GURNEY W/ SITTER OUTSIDE ROOM. RESP EVEN AND UNLABORED, PARDEEP.
--- NOTE | 2020-06-08 20:49 | NUR ---
REPORT GIVEN TO DENNIS RAUSCH.
--- NOTE | 2020-06-08 20:50 | NUR ---
REPORT RECEIVED FROM MIRACLE OCONNELL. PLAN OF CARE DISCUSSED
--- NOTE | 2020-06-08 21:37 | NUR ---
PATIENT IN SHOWER AT THIS TIME. SUPERVISED BY 2 TECHS.
--- NOTE | 2020-06-08 21:45 | NUR ---
pt. was arun
== END 2020-06-08 22:19 ==
LOC: ED 09:09
DX: R45.851 Suicidal ideations (principal); F15.10 Other stimulant abuse, uncomplicated; F41.9 Anxiety disorder, unspecified
CPT/HCPCS: 36415; 80048; 80307; 82040; 85025; 99285

== ENCOUNTER 2020-06-15 01:35 | Emergency (ER) | payer MEDICAID ==
[~2020-06-15] VITALS: Ht 190.5 cm; Wt 77.0 kg
[2020-06-15 01:46] VITALS: BP 110/72
--- NOTE | 2020-06-15 02:37 | NUR ---
pt brought back to room 40
[2020-06-15] MEDS ORDERED: KETOROLAC 30 MG/1 ML ONE (02:38)
[2020-06-15] MEDS ORDERED: MORPHINE SULFATE 4 MG/ML, 1ML ONE (02:38)
[2020-06-15] MEDS ORDERED: DIAZEPAM 5 MG/ML, 2ML ONE (02:41)
[2020-06-15] MEDS ORDERED: SODIUM CHLORIDE FLUSH 10ML SYR IVF ONE (03:00)
[2020-06-15] MEDS ORDERED: SODIUM CHLORIDE 0.9% 1,000ML IV ONE (03:00)
[2020-06-15] MEDS ORDERED: DIAZEPAM 5 MG/ML, 2ML IVPush ONE (03:00)
[2020-06-15] MEDS ORDERED: KETOROLAC 30 MG/1 ML IVPush ONE (03:00)
[2020-06-15] MEDS ORDERED: MORPHINE SULFATE 4 MG/ML, 1ML IVPush PRN (03:00)
--- NOTE | 2020-06-15 03:12 | NUR ---
piv and labs done mri screening tool complete and faxed
--- NOTE | 2020-06-15 03:15 | NUR ---
TO MRI AT THIS TIME
[2020-06-15 03:20] LABS: BASOPHILS # (AUTO) 0.02 x10^3/uL (0-0.1); BASOPHILS % (AUTO) 0 % (0-1); EOSINOPHILS # (AUTO) 0.09 x10^3/uL (0-0.4); EOSINOPHILS % (AUTO) 1 % (1-7); LYMPHOCYTES # (AUTO) 1.95 x10^3/uL (1-3.4); LYMPHOCYTES % (AUTO) 16 % (22-44); MD NO; MEAN CORPUSCULAR HEMOGLOBIN 29.1 pg (27.5-34.5); MEAN CORPUSCULAR HGB CONC 33.3 g/dL (33.2-36.2); MEAN CORPUSCULAR VOLUME 87.3 fL (81-97); MEAN PLATELET VOLUME 9.9 fL (7.4-10.4); MONOCYTES # (AUTO) 0.95 x10^3/uL (0.2-0.8); MONOCYTES % (AUTO) 8 % (2-9); NEUTROPHILS # (AUTO) 9.16 x10^3/uL (1.8-6.8); NEUTROPHILS % (AUTO) 75 % (42-75); PLATELET COUNT 234 x10^3/uL (130-400); RED BLOOD COUNT 5.02 x10^6/uL (4.38-5.82); RED CELL DISTRIBUTION WIDTH 14.6 % (9.4-14.8)
[2020-06-15 03:23] LABS: HCT (SEDRATE) 43.8 % (39.2-51.8)
[2020-06-15 03:31] LABS: ALBUMIN 3.7 g/dL (3.4-5.0); ANION GAP 6 mmol/L (5-15); C-REACTIVE PROTEIN, QUANT 0.04 mg/dL (0.02-0.49); CALCIUM 8.3 mg/dL (8.5-10.1); CHLORIDE 109 mmol/L (98-107); CREATININE 0.97 mg/dL (0.7-1.3)
[2020-06-15] MEDS ORDERED: GADOTERATE 7.5 MMOL/15 ML SYR ONE (04:43)
--- NOTE | 2020-06-15 04:59 | NUR ---
PT BACK FROM MRI AT THIS TIME
== END 2020-06-15 06:22 | disposition home or self-care (01) ==
LOC: ED 04:18
DX: M54.2 Cervicalgia (principal); M54.5 Low back pain; M54.6 Pain in thoracic spine; F15.10 Other stimulant abuse, uncomplicated; G40.909 Epilepsy, unspecified, not intractable, without status epilepticus; Z72.9 Problem related to lifestyle, unspecified
CPT/HCPCS: 36415; 72156; 72157; 72158; 80048; 82040; 85025; 85651; 86140; 96374; 96375; 99285; A9575; J1885; J2270; J3360; J7030

== ENCOUNTER 2020-07-12 18:50 | Inpatient (IN) | payer MEDICAID ==
[~2020-07-12] VITALS: Ht 190.5 cm; Wt 78.6 kg
--- NOTE | 2020-07-12 19:01 | NUR ---
PT BIB EMS FOR SZ. PT STATES HE HAD MULTIPLE SZ TODAY. HE HAD A BYSTANDER CALL 911 FOR HIM. HE IS SUPPOSED TO BE ON KEPPRA BUT "HASNT TAKEN IT IN A LONG TIME". PT ALSO ADMITS TO USE METH AND DRINK ALCOHOL DAILY AND STATES ITS BEEN ABOUT 2 DAYS SINCE HE LAST USED. PT IS RESTING IN [facility]. SZ PRECAUTIONS IN PLACE. CONNECTED TO MONITORING EQUIPMENT.
[2020-07-12] MEDS ORDERED: LORazepam 2 MG/ML, 1ML IVPush ONE (19:30)
[2020-07-12] MEDS ORDERED: SODIUM CHLORIDE FLUSH 10ML SYR IVF ONE (19:30)
[2020-07-12] MEDS ORDERED: LEVETIRACETAM 1,000 MG in SODIUM CHLORIDE 0.9% 100 ML IV ONE (19:30)
[2020-07-12] MEDS ORDERED: LORazepam 2 MG/ML, 1ML ONE (19:46)
[2020-07-12 19:53] LABS: ALBUMIN 3.4 g/dL (3.4-5.0); ANION GAP 6 mmol/L (5-15); CALCIUM 8.4 mg/dL (8.5-10.1); CHLORIDE 107 mmol/L (98-107)
[2020-07-12 19:54] LABS: CREATININE 0.88 mg/dL (0.7-1.3)
[2020-07-12 19:56] LABS: BASOPHILS # (AUTO) 0.05 x10^3/uL (0-0.1); BASOPHILS % (AUTO) 1 % (0-1); EOSINOPHILS # (AUTO) 0.68 x10^3/uL (0-0.4); EOSINOPHILS % (AUTO) 7 % (1-7); LYMPHOCYTES # (AUTO) 2.38 x10^3/uL (1-3.4); LYMPHOCYTES % (AUTO) 25 % (22-44); MD NO; MEAN CORPUSCULAR HEMOGLOBIN 29.3 pg (27.5-34.5); MEAN CORPUSCULAR HGB CONC 32.9 g/dL (33.2-36.2); MEAN CORPUSCULAR VOLUME 89.3 fL (81-97); MEAN PLATELET VOLUME 9.4 fL (7.4-10.4); MONOCYTES # (AUTO) 0.67 x10^3/uL (0.2-0.8); MONOCYTES % (AUTO) 7 % (2-9); NEUTROPHILS # (AUTO) 5.58 x10^3/uL (1.8-6.8); NEUTROPHILS % (AUTO) 60 % (42-75); PLATELET COUNT 253 x10^3/uL (130-400); RED BLOOD COUNT 4.98 x10^6/uL (4.38-5.82); RED CELL DISTRIBUTION WIDTH 14.2 % (9.4-14.8)
--- NOTE | 2020-07-12 20:15 | NUR ---
PT RESTING IN [facility]. VSS. NAD. MEDICATED PER MAR
[2020-07-12] MEDS ORDERED: MELATONIN 5 MG TABLET PO PRN (21:30)
[2020-07-12] MEDS ORDERED: CHLORDIAZEPOXIDE 25 MG CAPSULE PO SCH (21:30)
[2020-07-12] MEDS ORDERED: LABETALOL 5MG/ML, 20ML IVPush PRN (21:30)
[2020-07-12] MEDS ORDERED: BISACODYL 10 MG SUPP PR PRN (21:30)
[2020-07-12] MEDS ORDERED: ONDANSETRON 2MG/ML, 2ML IVPush PRN (21:30)
[2020-07-12] MEDS ORDERED: THIAMINE 200 MG, MVI ADULT 10 ML, FOLIC ACID 1 MG in D5%-0.9% NACL 1,000 ML IV SCH ×2 (21:30)
[2020-07-12] MEDS ORDERED: POLYETHYLENE GLYCOL 17 GM PACKET PO PRN (21:30)
[2020-07-12] MEDS ORDERED: hydrALAzine 20 MG/ML, 1ML IVPush PRN (21:30)
[2020-07-12] MEDS ORDERED: LIDODERM 5% PATCH TD PRN (21:30)
[2020-07-12] MEDS ORDERED: PROMETHAZINE 25 MG/ML, 1ML IM PRN (21:30)
[2020-07-12] MEDS ORDERED: LORazepam 2 MG/ML, 1ML IVPush PRN (21:30)
[2020-07-12] MEDS ORDERED: FOLIC ACID 1 MG TABLET PO ONE (21:34)
[2020-07-12] MEDS ORDERED: CHLORDIAZEPOXIDE 25 MG CAPSULE PO PRN (22:00)
[2020-07-12] MEDS ORDERED: NICOTINE 21 MG/24 HR PATCH.TD24 TD ONE (22:00)
[2020-07-12 22:06] VITALS: BP 111/66
[2020-07-13 01:39] VITALS: BP 100/59
[2020-07-13 04:11] LABS: BASOPHILS # (AUTO) 0.03 x10^3/uL (0-0.1); BASOPHILS % (AUTO) 0 % (0-1); EOSINOPHILS # (AUTO) 0.66 x10^3/uL (0-0.4); EOSINOPHILS % (AUTO) 8 % (1-7); LYMPHOCYTES % (AUTO) 28 % (22-44); MD NO; MEAN CORPUSCULAR HEMOGLOBIN 29.4 pg (27.5-34.5); MEAN CORPUSCULAR HGB CONC 32.8 g/dL (33.2-36.2); MEAN CORPUSCULAR VOLUME 89.7 fL (81-97); MEAN PLATELET VOLUME 9.3 fL (7.4-10.4); MONOCYTES # (AUTO) 0.58 x10^3/uL (0.2-0.8); MONOCYTES % (AUTO) 7 % (2-9); NEUTROPHILS # (AUTO) 4.55 x10^3/uL (1.8-6.8); NEUTROPHILS % (AUTO) 56 % (42-75); PLATELET COUNT 230 x10^3/uL (130-400); RED BLOOD COUNT 4.89 x10^6/uL (4.38-5.82); RED CELL DISTRIBUTION WIDTH 14.3 % (9.4-14.8)
[2020-07-13 04:26] LABS: ANION GAP 3 mmol/L (5-15); CALCIUM 7.8 mg/dL (8.5-10.1); CHLORIDE 111 mmol/L (98-107)
[2020-07-13 06:02] LABS: AMPHETAMINE SCREEN, URINE Positive (Negative); BARBITURATE SCREEN, URINE Negative (Negative); BENZODIAZEPINE SCREEN, URINE Negative (Negative); CANNABINOID SCREEN, URINE Positive (Negative); COCAINE SCREEN, URINE Negative (Negative); METHADONE SCREEN, URINE Negative (Negative); OPIATE SCREEN, URINE Negative (Negative)
[2020-07-13] MEDS ORDERED: LEVETIRACETAM 500 MG in SODIUM CHLORIDE 0.9% 100 ML IV SCH (07:30)
[2020-07-13 07:36] VITALS: BP 111/55
[2020-07-13] MEDS ORDERED: THIAMINE 100MG TABLET PO SCH (09:30)
[2020-07-13] MEDS: MULTIVITAMIN 1 TABLET PO SCH (09:53)
[2020-07-13] MEDS: THIAMINE 100MG TABLET PO SCH ×2 (09:53→20:39)
[2020-07-13] MEDS: FOLIC ACID 1 MG TABLET PO SCH (09:53)
[2020-07-13] MEDS: SENNA/DOCUSATE TABLET PO SCH (09:53)
[2020-07-13] MEDS: PANTOPRAZOLE 40MG TABLET PO SCH (09:53)
[2020-07-13] MEDS: ENOXAPARIN 40 MG/0.4 ML SQ SCH (09:54)
[2020-07-13] MEDS ORDERED: PERMETHRIN CRM 5%, 60GM TP SCH (10:30)
[2020-07-13] MEDS ORDERED: PIPERONYL BUTOXIDE/PYRETHRINS SHAMPOO TP SCH (10:30)
[2020-07-13 13:56] VITALS: BP 116/62
[2020-07-13] MEDS: ACETAMINOPHEN 325 MG TABLET PO PRN ×2 (14:26→20:39)
[2020-07-13 19:26] VITALS: BP 120/76
[2020-07-13] MEDS: LEVETIRACETAM 500 MG TABLET PO SCH (20:39)
[2020-07-14 01:04] VITALS: BP 113/69
[2020-07-14] MEDS: PANTOPRAZOLE 40MG TABLET PO SCH (05:35)
[2020-07-14 06:36] VITALS: BP 122/69
[2020-07-14] MEDS: FOLIC ACID 1 MG TABLET PO SCH (10:36)
[2020-07-14] MEDS: THIAMINE 100MG TABLET PO SCH (10:36)
[2020-07-14] MEDS: MULTIVITAMIN 1 TABLET PO SCH (10:36)
[2020-07-14] MEDS: SENNA/DOCUSATE TABLET PO SCH (10:36)
[2020-07-14] MEDS: LEVETIRACETAM 500 MG TABLET PO SCH (10:36)
[2020-07-14] MEDS: ENOXAPARIN 40 MG/0.4 ML SQ SCH (10:37)
== END 2020-07-14 12:20 | disposition left against medical advice (07) | DRG 101 ==
LOC: ED 20:09 → EDIP 20:54 → 4WST 21:43
PROVIDERS: ADMIT Family Medicine; ATTEND Internal Medicine
DX: G40.909 Epilepsy, unspecified, not intractable, without status epilepticus (principal); F20.0 Paranoid schizophrenia; B85.1 Pediculosis due to Pediculus humanus corporis; F10.20 Alcohol dependence, uncomplicated; F31.9 Bipolar disorder, unspecified; F19.90 Other psychoactive substance use, unspecified, uncomplicated; M25.511 Pain in right shoulder; Z59.0 Homelessness; Z91.19 Patient's noncompliance with other medical treatment and regimen
CPT/HCPCS: 36415; 73030; 96365; 99285; J7042; 80048; 80307; 82040; 83735; 84100; 84443; 85025; 93005; G0378; J1650; J1953; J3411; J2060

== ENCOUNTER 2020-07-15 10:48 | Emergency (ER) | payer MEDICAID ==
[~2020-07-15] VITALS: Ht 190.5 cm; Wt 74.0 kg
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
--- NOTE | 2020-07-15 11:12 | NUR ---
YEN GIBSON AT BEDSIDE TO LAURA PT
--- NOTE | 2020-07-15 11:22 | NUR ---
ONE BAG OF BELONGINGS TO SECURE CABINET
[2020-07-15 12:05] LABS: BASOPHILS # (AUTO) 0.02 x10^3/uL (0-0.1); BASOPHILS % (AUTO) 0 % (0-1); EOSINOPHILS # (AUTO) 0.08 x10^3/uL (0-0.4); EOSINOPHILS % (AUTO) 1 % (1-7); LYMPHOCYTES # (AUTO) 1.57 x10^3/uL (1-3.4); LYMPHOCYTES % (AUTO) 19 % (22-44); MD NO; MEAN CORPUSCULAR HEMOGLOBIN 29.4 pg (27.5-34.5); MEAN CORPUSCULAR HGB CONC 33.1 g/dL (33.2-36.2); MEAN CORPUSCULAR VOLUME 88.7 fL (81-97); MEAN PLATELET VOLUME 9.2 fL (7.4-10.4); MONOCYTES # (AUTO) 0.41 x10^3/uL (0.2-0.8); MONOCYTES % (AUTO) 5 % (2-9); NEUTROPHILS # (AUTO) 6.18 x10^3/uL (1.8-6.8); NEUTROPHILS % (AUTO) 75 % (42-75); PLATELET COUNT 254 x10^3/uL (130-400); RED BLOOD COUNT 5.19 x10^6/uL (4.38-5.82)
--- NOTE | 2020-07-15 12:08 | NUR ---
PT ABLE TO PROVIDE URINE SPECIMAN. MEAL TRAY REQUESTED FROM DIETARY. CONT IN SECURE ROOM WITH SITTER AT DOOR.
[2020-07-15 12:16] LABS: ALBUMIN 3.6 g/dL (3.4-5.0); ANION GAP 5 mmol/L (5-15); CALCIUM 8.5 mg/dL (8.5-10.1); CHLORIDE 107 mmol/L (98-107); CREATININE 0.93 mg/dL (0.7-1.3)
[2020-07-15 12:18] LABS: SALICYLATE LEVEL < 1.7 mg/dL (2.8-20.0)
--- NOTE | 2020-07-15 12:35 | NUR ---
Break RN- meal provided, safety precautions in place.
[2020-07-15 12:51] LABS: BARBITURATE SCREEN, URINE Negative (Negative); BENZODIAZEPINE SCREEN, URINE Positive (Negative); CANNABINOID SCREEN, URINE Positive (Negative); COCAINE SCREEN, URINE Negative (Negative); METHADONE SCREEN, URINE Negative (Negative)
[2020-07-15 12:54] LABS: AMPHETAMINE SCREEN, URINE Positive (Negative); OPIATE SCREEN, URINE Negative (Negative)
[2020-07-15] MEDS ORDERED: OLANZAPINE 10 MG TABLET PO ONE (13:00)
[2020-07-15] MEDS ORDERED: DIVALPROEX 500 MG TABLET.DR PO ONE (13:00)
[2020-07-15] MEDS ORDERED: OLANZAPINE 10 MG TABLET ONE ×2 (13:21→21:41)
[2020-07-15] MEDS ORDERED: DIVALPROEX 500 MG TABLET.DR ONE ×2 (13:21→21:42)
--- NOTE | 2020-07-15 13:25 | NUR ---
PT MEDICATED ORDERED. PT WITH PO FLUIDS AT BEDSIDE. CONT IN SECURE ROOM WITH SITTER AT DOOR.
--- NOTE | 2020-07-15 14:45 | NUR ---
PT CONT IN SECURE ROOM WITH SITTER AT DOOR. WAITING FOR FURTHER DISPOSITION. COOPERATIVE AT THIS TIME.
--- NOTE | 2020-07-15 15:59 | NUR ---
PT MOSTLY SLEEPING, RESP EVEN AND UNLABORED. CONT IN SECURE ROOM WITH SITTER AT DOOR.
--- NOTE | 2020-07-15 17:22 | NUR ---
PT PROVIDED WITH MEAL TRAY. PO FLUIDS AT BEDSIDE. PT USING URINAL PRN. NO NEEDS EXPRESSED AT THIS TIME. CONT IN SECURE ROOM WITH SITTER AT DOOR.
--- NOTE | 2020-07-15 19:00 | NUR ---
REPORT TO ASHOK Cordova RN, POC DISCUSSED.
--- NOTE | 2020-07-15 20:30 | NUR ---
PT RESTING IN NAD. VISIBLE RISE AND FALL OF CHEST OBSERVED. PT BEING OBSERVED BY SITTER.
[2020-07-15] MEDS ORDERED: OLANZAPINE 10 MG TABLET PO SCH (21:00)
--- NOTE | 2020-07-15 21:49 | NUR ---
PT MEDICATED PER EMAR. PT REFUSED TO HAVE TEMP CHECKED. VSS. REPORT TO BRIA RAUSCH.
[2020-07-15] MEDS: DIVALPROEX 500 MG TABLET.DR PO SCH (21:50)
--- NOTE | 2020-07-15 22:00 | NUR ---
PATIENT RESTING IN BED, NO NOTED ACUTE DISTRESS. SITTER IN VIEW OF PATIENT. WILL CONTINUE TO MONITOR.
--- NOTE | 2020-07-15 22:28 | NUR ---
YONY RN: PT IS A SELF PAY. PACKET FAXED TO [facility].
--- NOTE | 2020-07-15 23:00 | NUR ---
PATIENT RESTING IN BED, NO NOTED ACUTE DISTRESS. SITTER IN VIEW OF PATIENT. WILL CONTINUE TO MONITOR
--- NOTE | 2020-07-16 | NUR ---
PATIENT RESTING IN BED, NO NOTED ACUTE DISTRESS. SITTER IN VIEW OF PATIENT. WILL CONTINUE TO MONITOR
--- NOTE | 2020-07-16 01:00 | NUR ---
PATIENT RESTING IN BED, NO NOTED ACUTE DISTRESS. SITTER IN VIEW OF PATIENT. WILL CONTINUE TO MONITOR
--- NOTE | 2020-07-16 02:00 | NUR ---
PATIENT RESTING IN BED, NO NOTED ACUTE DISTRESS. SITTER IN VIEW OF PATIENT. WILL CONTINUE TO MONITOR
--- NOTE | 2020-07-16 03:00 | NUR ---
PATIENT RESTING IN BED, EVEN UNLABORED RESPIRATIONS, NO NOTED ACUTE DISTRESS. SITTER IN VIEW OF PATIENT. PATIENT HAS NOT EATEN FOOD THAT WAS PROVIDED FOR HIM, WILL ALLOW FOR MORE TIME TO CONSUME MEAL PRIOR TO REMOVING. WILL CONTINUE TO MONITOR
--- NOTE | 2020-07-16 04:00 | NUR ---
PATIENT RESTING IN BED, NO NOTED ACUTE DISTRESS. SITTER IN VIEW OF PATIENT. WILL CONTINUE TO MONITOR
--- NOTE | 2020-07-16 05:00 | NUR ---
PATIENT RESTING IN BED, NO NOTED ACUTE DISTRESS. SITTER IN VIEW OF PATIENT. WILL CONTINUE TO MONITOR
--- NOTE | 2020-07-16 05:36 | NUR ---
SUICIDE DIET TRAY ORDERED
--- NOTE | 2020-07-16 06:25 | NUR ---
AM VITAL SIGNS OBTAINED, PATIENT TOLERATED WELL. SITTER WITHIN VIEW OF PATIENT. PATIENT ANSWERED SI QUESTIONS, NO CHANGE IN STATUS. PATIENT UPDATED ON PLAN OF CARE.
--- NOTE | 2020-07-16 07:07 | NUR ---
SBAR HAND-OFF REPORT RECEIVED FROM MIRACLE FRASER. ASSUMING CARE OF PATIENT. PATEINT REMAINS UNDER THE CONSTANT SUPERVISION OF SITTER AND REMAIN SAFE.
[2020-07-16 09:32] VITALS: BP 117/75
[2020-07-16] MEDS ORDERED: DIVALPROEX 500 MG TAB.ER.24H ONE (09:39)
[2020-07-16] MEDS ORDERED: OLANZAPINE 10 MG TABLET ONE (09:39)
[2020-07-16] MEDS ORDERED: DIVALPROEX 500 MG TABLET.DR ONE (10:10)
[2020-07-16] MEDS: DIVALPROEX 500 MG TABLET.DR PO SCH (10:14)
--- NOTE | 2020-07-16 10:14 | NUR ---
BREAK RN: PT RESTING ON SCOT. PARDEEP. SITTER REMAINS AT BEDSIDE. ROOM REMAINS SECURE. PT MEDICATED PER JAN.
--- NOTE | 2020-07-16 12:04 | NUR ---
BREAK RN: PT RESTING IN BED. GILDARDON. SITTER REMAINS AT BEDSIDE. ROOM REMAINS SECURE.
--- NOTE | 2020-07-16 12:17 | NUR ---
BREAK RN: PT PROVIDED W/ SI LUNCH TRAY.
--- NOTE | 2020-07-16 16:56 | NUR ---
Patient given discharge instructions and they have confirmed that they understand the instructions. Patient ambulatory with steady gait. Patient given local community resources info.
== END 2020-07-16 16:57 | disposition home or self-care (01) ==
LOC: EDBD 10:48 → EDUNIT# 10:48 → ED 22:06
DX: R45.851 Suicidal ideations (principal); F23 Brief psychotic disorder
CPT/HCPCS: 36415; 80048; 80307; 82040; 85025; 99284; 99285

== ENCOUNTER 2020-07-16 18:07 | Emergency (ER) | payer MEDICAID ==
[~2020-07-16] VITALS: Ht 190.5 cm; Wt 78.3 kg
[2020-07-16] MEDS ORDERED: SODIUM CHLORIDE FLUSH 10ML SYR IVF ONE (18:30)
[2020-07-16] MEDS ORDERED: LEVETIRACETAM 1,000 MG in SODIUM CHLORIDE 0.9% 100 ML IV ONE (18:30)
--- NOTE | 2020-07-16 18:36 | NUR ---
SEIZURE PRECAUTIONS IN PLACE.
[2020-07-16 19:16] VITALS: BP 116/68
--- NOTE | 2020-07-16 19:29 | NUR ---
PT REFUSING PIV REMOVAL FOR DC. SECURITY AT BEDSIDE FOR ASSISTANCE. PIV REMOVED WITH TIP INTACT. SECURITY TO ESCORT PT OUT OF ER.
== END 2020-07-16 20:42 | disposition home or self-care (01) ==
LOC: ED 20:38
DX: R56.9 Unspecified convulsions (principal); F17.200 Nicotine dependence, unspecified, uncomplicated; Z91.19 Patient's noncompliance with other medical treatment and regimen
CPT/HCPCS: 96365; 99284; J1953

== ENCOUNTER 2020-07-17 07:56 | Emergency (ER) | payer MEDICAID ==
--- NOTE | 2020-07-17 08:03 | NUR ---
PROBATION AND PAROLE OFFICER: PT IN LOBBY, SITTING IN W/C. PT ROCKING BACK AND FORTH "TRYING TO HAVE A SEIZURE" PER PT. PT A&O X4 DURING EPISODE, CUSSING AT STAFF MEMBERS. PT STATES "I AM TOO HAVING A SEIZURE" PT STOOD UP AND AMB OUT OF ER DOORS WITH STEADY GAIT.
== END 2020-07-17 08:08 | disposition left against medical advice (07) ==
LOC: ED 08:02
DX: R56.9 Unspecified convulsions (principal); Z53.21 Procedure and treatment not carried out due to patient leaving prior to being seen by health care provider

== ENCOUNTER 2020-07-17 11:16 | Emergency (ER) | payer MEDICAID ==
[~2020-07-17] VITALS: Ht 190.5 cm; Wt 78.5 kg
--- NOTE | 2020-07-17 11:30 | NUR ---
TPT ARRIVED VIA EMS PER REPORT, PT SEEN HERE EARLIER AND AMA'D. PT WAS AT [facility] "HAD A SEIZURE, FELL AND HIT HEAD" PER REPORT "NO ONE WOULD CALL EMS, SO I WENT TO [facility]AVE [facility] ACROSS THE STREE" PT ARRIVES WITH IV IN RAC. RECEIVED 500CC NS. BS 82. PT IN W/C ACROSS FROM NURSING STATION. ROCKING MOTION AT TIMES. IRVIN SANCHEZ'Brody PT. IV TO BE DC'D. PT TO HAVE CT OF HEAD.
--- NOTE | 2020-07-17 11:48 | NUR ---
PT TO CT VIA W/C
--- NOTE | 2020-07-17 11:51 | NUR ---
CT COMPLETE, PT RETURNED. NO CHANGE IN CONDITION NOTED. DOZING INTERMITTENTLY, AROUSES TO NAME.
--- NOTE | 2020-07-17 12:45 | NUR ---
PT CONT MOSTLY DOZING, AROUSES EASILY. NO SEIZURE ACTIVITY NOTED. AWAITING FURTHER DISPOSITION.
[2020-07-17 13:08] VITALS: BP 96/65
--- NOTE | 2020-07-17 13:09 | NUR ---
IRVIN GIBSON UPDATED ON PTS V/S.
== END 2020-07-17 13:21 | disposition home or self-care (01) ==
LOC: ED 11:59
DX: S09.90XA Unspecified injury of head, initial encounter (principal); F12.10 Cannabis abuse, uncomplicated; F15.10 Other stimulant abuse, uncomplicated; F17.290 Nicotine dependence, other tobacco product, uncomplicated; Z72.9 Problem related to lifestyle, unspecified; Z59.0 Homelessness; W22.8XXA Striking against or struck by other objects, initial encounter; Y93.89 Activity, other specified; Y92.89 Other specified places as the place of occurrence of the external cause; Y99.8 Other external cause status
CPT/HCPCS: 70450; 99284

== ENCOUNTER 2020-09-19 16:42 | Emergency (ER) | payer MEDICAID ==
[~2020-09-19] VITALS: Ht 190.5 cm; Wt 79.0 kg
--- NOTE | 2020-09-19 17:05 | NUR ---
PT STATED HE DOESN'T KNOW WHAT TO DO SOMETIMES BECAUSE HE DOES A LOT OF DRUGS. STATED HE IS CURRENTLY STAYING [place] HIS SISTER WHO IS PARTIALLY HOMELESS. PARTY DEMONSTRATOR AND ERP IN TO SPEAK WITH PT.
--- NOTE | 2020-09-19 17:18 | NUR ---
PT GOING FOR XRAY
[2020-09-19 18:29] VITALS: BP 108/68
[2020-09-19] MEDS ORDERED: SODIUM CHLORIDE 0.9% 1,000ML IVBOLUS ONE (18:30)
--- NOTE | 2020-09-19 19:40 | NUR ---
Refuses VS. Resting comfortably on stretcher. No s/sx acute distress. Bed low, side rails up, call [facility] within reach
--- NOTE | 2020-09-19 21:45 | NUR ---
Pt refuses d/c VS, d/c teaching and cab voucher. States he is going to walk to halfway. Steady gait noted. Instructed pt to return to ED with worsening sx
== END 2020-09-19 21:46 | disposition home or self-care (01) ==
LOC: ED 19:53
DX: S22.31XA Fracture of one rib, right side, initial encounter for closed fracture (principal); R07.89 Other chest pain; W18.30XA Fall on same level, unspecified, initial encounter; Y93.89 Activity, other specified; Y92.410 Unspecified street and highway as the place of occurrence of the external cause; Y99.8 Other external cause status
CPT/HCPCS: 71101; 96360; 99283; J7030

== ENCOUNTER 2020-11-06 15:53 | Emergency (ER) | payer MEDICAID ==
[~2020-11-06] VITALS: Ht 190.5 cm; Wt 95.0 kg
[~2020-11-06 15:53] MED LIST changes: -RISP3TAB3 PO; +RISP3TAB58 PO
[2020-11-06 15:55] VITALS: BP 142/80
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
[2020-11-06] MEDS ORDERED: LEVETIRACETAM 500 MG TABLET PO ONE (16:30)
[2020-11-06] MEDS ORDERED: LEVETIRACETAM 500 MG TABLET ONE (16:31)
--- NOTE | 2020-11-06 16:43 | NUR ---
MEDICATED PATIENT PER EMAR. PATIENT RESTING COMFORTABLY. GAVE SANDWICH AND WATER. NO ADDITIONAL NEEDS AT THIS TIME.
--- NOTE | 2020-11-06 17:14 | NUR ---
PROVIDED PT WITH NEW UNDERWEAR, CLOTHES. PT SCREAMING AND YELLING AT THIS RN, SECURITY CALLED
--- NOTE | 2020-11-06 17:23 | NUR ---
DR. KIRAN AWARE, PT WAS AWARE OF DISCHARGE RESOURCES, CONTINOUS TO YELL AND COMBATIVE. SECURITY IN ROOM
--- NOTE | 2020-11-06 17:37 | NUR ---
PATIENT DISCHARGED AND ESCORTED OUT BY [employer]. Patient given discharge instructions and they have confirmed that they understand the instructions. Patient ambulatory with steady gait.
== END 2020-11-06 17:44 | disposition home or self-care (01) ==
LOC: ED 16:03
DX: G40.309 Generalized idiopathic epilepsy and epileptic syndromes, not intractable, without status epilepticus (principal); R79.1 Abnormal coagulation profile; F17.200 Nicotine dependence, unspecified, uncomplicated; Z91.14 Patient's other noncompliance with medication regimen
CPT/HCPCS: 99283

== ENCOUNTER 2020-11-07 08:54 | Emergency (ER) | payer MEDICAID ==
[~2020-11-07] VITALS: Ht 182.9 cm; Wt 81.8 kg
[2020-11-07] MEDS ORDERED: DIVALPROEX 500 MG TABLET.DR PO ONE (10:30)
[2020-11-07] MEDS ORDERED: OLANZAPINE 10 MG TABLET PO ONE (10:30)
[2020-11-07 10:31] LABS: BASOPHILS % (AUTO) 1 % (0-1); EOSINOPHILS % (AUTO) 4 % (1-7); LYMPHOCYTES % (AUTO) 19 % (22-44); MEAN CORPUSCULAR HGB CONC 34.5 g/dL (33.2-36.2); MEAN PLATELET VOLUME 9.3 fL (7.4-10.4); MONOCYTES % (AUTO) 8 % (2-9); NEUTROPHILS % (AUTO) 70 % (42-75); PLATELET COUNT 249 x10^3/uL (130-400); RED CELL DISTRIBUTION WIDTH 14.2 % (9.4-14.8)
[2020-11-07 10:35] LABS: MD NO
[2020-11-07 10:36] LABS: ALANINE AMINOTRANSFERASE 131 U/L (12-78); ALBUMIN 3.7 g/dL (3.4-5.0); ANION GAP 5 mmol/L (5-15); CALCIUM 9.1 mg/dL (8.5-10.1); CHLORIDE 102 mmol/L (98-107); CREATININE 0.98 mg/dL (0.7-1.3)
[2020-11-07] MEDS ORDERED: DIVALPROEX 500 MG TAB.ER.24H ONE (10:36)
[2020-11-07] MEDS ORDERED: OLANZAPINE 10 MG TABLET ONE (10:36)
[2020-11-07 10:47] LABS: ALKALINE PHOSPHATASE 121 U/L (45-117); BILIRUBIN,TOTAL 1.1 mg/dL (0.2-1.0); SALICYLATE LEVEL < 1.7 mg/dL (2.8-20.0); TOTAL PROTEIN 7.6 g/dL (6.4-8.2)
--- NOTE | 2020-11-07 16:32 | NUR ---
PT SHOWERED. ALL BELONGINGS PLACED IN BIOHAZARD BAGS AND TAPED SHUT. PT TO RM 31
[2020-11-07 16:54] LABS: AMPHETAMINE SCREEN, URINE Positive (Negative); BARBITURATE SCREEN, URINE Negative (Negative); BENZODIAZEPINE SCREEN, URINE Negative (Negative); CANNABINOID SCREEN, URINE Positive (Negative); COCAINE SCREEN, URINE Negative (Negative); METHADONE SCREEN, URINE Negative (Negative); OPIATE SCREEN, URINE Negative (Negative)
[2020-11-07 18:43] VITALS: BP 129/85
[2020-11-07] MEDS ORDERED: DIVALPROEX 500 MG TAB.ER.24H PO SCH (21:00)
[2020-11-08] MEDS ORDERED: OLANZAPINE 10 MG TABLET PO SCH (09:00)
== END 2020-11-07 20:44 ==
LOC: ED 10:09
DX: R45.851 Suicidal ideations (principal); F19.10 Other psychoactive substance abuse, uncomplicated; F39 Unspecified mood [affective] disorder
CPT/HCPCS: 36415; 80053; 80299; 80307; 80320; 80329; 84443; 85025; 99285; G0480

== ENCOUNTER 2020-12-30 00:48 | Emergency (ER) | payer MEDICAID ==
[~2020-12-30] VITALS: Ht 190.5 cm; Wt 81.0 kg
--- NOTE | 2020-12-30 01:00 | NUR ---
late entry d.t pt care: pt bib [facility] where he was sleeping with a group of other individuals trying to stay warm but was being forced to leave by [employer], pt was unable to ambulate at that time. pt reports having a seizure at that time as well, unwitnessed by [employer] or [facility], pt was not post ictal, no loss of bowel or bladder additionally. Pt states that his primary c/o is low back pain that is chronic but worse to day after a fall yesterday, denies loc or head impact yesterday. pt nad, resting on gurney, bed in lowest, skin dry. call light on lap, provided warm blankets and call light. wctm. Pt placed on spo2/bp/ecg monitoring. Elizabeth GIBSON at bs for eval and poc.
[2020-12-30] MEDS ORDERED: CYCLOBENZAPRINE 10 MG TABLET ONE (01:10)
[2020-12-30] MEDS ORDERED: KETOROLAC 30 MG/1 ML ONE (01:10)
[2020-12-30] MEDS ORDERED: KETOROLAC 30 MG/1 ML IM ONE (01:30)
[2020-12-30] MEDS ORDERED: CYCLOBENZAPRINE 10 MG TABLET PO ONE (01:30)
--- NOTE | 2020-12-30 01:37 | NUR ---
pt resting on gurney, nad, eyes closed, even and unlabored respirations, wctm. waiting for rads
--- NOTE | 2020-12-30 02:30 | NUR ---
LATE ENTRY D/T PT CARE: PT RESTING ON GURNEY, NAD, EYES CLOSED, EVEN AND UNLABORED RESPIRATIONS NOTED. BED IN LOWEST, CALL LIGHT ON LAB, RAILS ENGAGED, WCTM. WAITING FOR RAD READ.
[2020-12-30 03:12] VITALS: BP 111/65
--- NOTE | 2020-12-30 03:33 | NUR ---
Patient given discharge instructions and they have confirmed that they understand the instructions. Patient ambulatory with steady gait. NAD, DENIES ADDITIONAL QUESTIONS OR NEEDS, PROVIDED TAXI VOUCHER. NO PERSONAL BELONGINGS LEFT IN ROOM AFTER DC.
== END 2020-12-30 03:34 | disposition home or self-care (01) ==
LOC: ED 01:16
DX: S39.012A Strain of muscle, fascia and tendon of lower back, initial encounter (principal); S50.02XA Contusion of left elbow, initial encounter; G89.29 Other chronic pain; W01.0XXA Fall on same level from slipping, tripping and stumbling without subsequent striking against object, initial encounter; Y93.89 Activity, other specified; Y92.89 Other specified places as the place of occurrence of the external cause; Y99.8 Other external cause status
CPT/HCPCS: 72110; 73080; 96372; 99284; J1885

== ENCOUNTER 2021-08-14 01:16 | Emergency (ER) | payer MEDICAID ==
[~2021-08-14] VITALS: Ht 190.5 cm; Wt 76.4 kg
[2021-08-14 01:22] VITALS: BP 124/74
[2021-08-14] MEDS ORDERED: IBUPROFEN 800 MG TABLET ONE (02:28)
== END 2021-08-14 02:42 | disposition home or self-care (01) ==
LOC: ED 01:26
DX: S29.012A Strain of muscle and tendon of back wall of thorax, initial encounter (principal); F15.10 Other stimulant abuse, uncomplicated; R07.89 Other chest pain; G40.909 Epilepsy, unspecified, not intractable, without status epilepticus; F17.210 Nicotine dependence, cigarettes, uncomplicated; X58.XXXA Exposure to other specified factors, initial encounter; Y93.89 Activity, other specified; Y92.410 Unspecified street and highway as the place of occurrence of the external cause; Y99.8 Other external cause status
CPT/HCPCS: 71046; 99406